=== PATIENT | female | born 1975 | race African-American/Black ===

== ENCOUNTER → 2018-11-03 | Outpatient (CLI) | payer OTHER ==
--- NOTE | 2018-11-03 09:09 | MM ---
Reason for exam: screening (asymptomatic). Baseline mammogram. History: Family history of breast cancer in mother at age 65. Physical Findings: Nurse did not find any significant physical abnormalities on exam. MG Screening Mammo w CAD Bilateral CC and MLO view(s) were taken. There are scattered fibroglandular densities. Benign appearing bilateral calcifications. No suspicious abnormality. These results were verbally communicated with the patient and result sheet given to the patient on 11/03/18. ASSESSMENT: Benign, BI-RAD 2 RECOMMENDATION: Routine screening mammogram of both breasts in 1 year.
== END | disposition home or self-care (01) ==
LOC: RADMAMWWP 06:52
DX: Z12.31 Encounter for screening mammogram for malignant neoplasm of breast (principal)
CPT/HCPCS: 77067

== ENCOUNTER 2019-01-18 14:09 | Emergency (ER) | payer OTHER ==
[2019-01-18] MEDS ORDERED: MORPHINE SULFATE 4 MG/ML SYRINGE IV STA (14:32)
[2019-01-18] MEDS ORDERED: ONDANSETRON 4 MG/2 ML VIAL IVP STA ×2 (14:32→15:30)
[2019-01-18] MEDS ORDERED: PANTOPRAZOLE 40 MG/10 ML VIAL IVP STA (14:32)
[2019-01-18] MEDS ORDERED: SODIUM CHLORIDE 0.9% 1,000 ML IV STA (14:32)
--- NOTE | 2019-01-18 14:35 | ED ---
General Adult HPI - General Source: patient, EMS, RN notes reviewed Mode of arrival: EMS Limitations: no limitations <Eduardo Lanier - Last Filed: 01/18/19 17:36> <Jethro Crawley - Last Filed: 01/18/19 19:14> - General Chief complaint: Nausea/Vomiting/Diarrhea Stated complaint: Vomiting Time Seen by Provider: 01/18/19 14:18 - History of Present Illness Initial comments: Patient is a pleasant 43-year-old female presenting to the emergency department with nausea and vomiting. Symptoms started a couple of days ago. Patient still feels nauseated. Patient also has associated diarrhea. Patient is unable to quantify the amount of vomiting or diarrhea. Patient admits also having abdominal discomfort. Patient's blood sugar was 300 per EMS. Patient limits her history providing. (Eduardo Lanier) - Related Data Home Medications Medication Instructions Recorded Confirmed Venlafaxine HCl [Effexor XR] 75 mg PO DAILY 01/18/19 01/18/19 traZODone HCL [Desyrel] 25 mg PO HS PRN 01/18/19 01/18/19 Previous Rx's Medication Instructions Recorded Dicyclomine [Bentyl] 10 mg PO TID #12 capsule 01/18/19 Ibuprofen 800 mg PO Q6HR PRN #20 tablet 01/18/19 Allergies Allergy/AdvReac Type Severity Reaction Status Date / Time morphine Allergy Unknown Verified 01/18/19 14:46 Review of Systems ROS Other: All systems not noted in ROS Statement are negative. Constitutional: Denies: fever Eyes: Denies: eye pain ENT: Denies: ear pain Respiratory: Denies: cough Cardiovascular: Denies: chest pain Endocrine: Denies: fatigue Gastrointestinal: Reports: abdominal pain, nausea, vomiting, diarrhea Genitourinary: Denies: dysuria Musculoskeletal: Denies: back pain Skin: Denies: rash Neurological: Denies: weakness <Eduardo Lanier - Last Filed: 01/18/19 17:36> ROS Other: All systems not noted in ROS Statement are negative. <Jethro Crawley - Last Filed: 01/18/19 19:14> ROS Statement: Those systems with pertinent positive or pertinent negative responses have been documented in the HPI. Past Medical History Past Medical History: Diabetes Mellitus History of Any Multi-Drug Resistant Organisms: None Reported Past Surgical History: No Surgical Hx Reported Past Psychological History: No Psychological Hx Reported Smoking Status: Current every day smoker Past Alcohol Use History: None Reported Past Drug Use History: Marijuana <Eduardo Lanier - Last Filed: 01/18/19 17:36> General Exam Limitations: no limitations General appearance: alert, in no apparent distress Head exam: Present: atraumatic Eye exam: Present: normal appearance ENT exam: Present: normal oropharynx Neck exam: Present: normal inspection Respiratory exam: Present: normal lung sounds bilaterally Cardiovascular Exam: Present: regular rate, normal rhythm GI/Abdominal exam: Present: soft, tenderness (Mild diffuse tenderness to palpation). Absent: distended Extremities exam: Present: normal inspection Neurological exam: Present: alert. Absent: motor sensory deficit Psychiatric exam: Present: flat affect Skin exam: Present: normal color <Eduardo Lanier - Last Filed: 01/18/19 17:36> Course <Eduardo Lanier - Filed: 01/18/19 17:36> Vital Signs 01/18/19 01/18/19 01/18/19 14:11 15:07 15:39 Temperature 100.1 F H 99.4 F 100.0 F H Pulse Rate 79 Respiratory 16 Rate Blood Pressure 153/92 O2 Sat by Pulse 99 Oximetry 01/18/19 01/18/19 01/18/19 17:00 17:05 18:29 Temperature 100.4 F H 100.4 F H Pulse Rate 89 Respiratory 16 16 Rate Blood Pressure 157/98 158/94 O2 Sat by Pulse 99 99 Oximetry - Reevaluation(s) Reevaluation #1: 01/18/19 17:[address] Crawley pending CT scan and reevaluation (Eduardo Lanier) EKG Findings - EKG Comments: EKG Findings:: Sinus rhythm at 60. Sinus arrhythmia. AL 198. The rest 94. QT 440. QTc 440. Normal axis. Normal QRS. No acute ST change. <Eduardo Lanier - Last Filed: 01/18/19 17:36> Medical Decision Making - Lab Data Result diagrams: 01/18/19 14:43 01/18/19 14:43 <Eduardo Lanier - Last Filed: 01/18/19 17:36> - Lab Data Result diagrams: 01/18/19 14:43 01/18/19 14:43 - Radiology Data Radiology results: report reviewed (Did review the imaging and report no acute findings), image reviewed <Jethro Crawley - Last Filed: 01/18/19 19:14> - Medical Decision Making Patient did present with complaints of nausea vomiting diarrhea some abdominal pain the presentation is consistent with gastroenteritis did have a fever. I did discuss the findings with her she'll be discharged after further fluids and some nonsteroidal pain medication she is to follow-up with her doctor and return when necessary (Jethro Crawley) - Lab Data Lab Results 01/18/19 01/18/19 01/18/19 Range/Units 14:43 14:43 14:43 WBC 12.6 H (3.8-10.6) k/uL RBC 4.76 (3.80-5.40) m/uL Hgb 12.9 (11.4-16.0) gm/dL Hct 39.7 (34.0-46.0) % MCV 83.3 (80.0-100.0) fL MCH 27.1 (25.0-35.0) pg MCHC 32.5 (31.0-37.0) g/dL RDW 15.6 H (11.5-15.5) % Plt Count 418 (150-450) k/uL Neutrophils % 84 % Lymphocytes % 13 % Monocytes % 1 % Eosinophils % 1 % Basophils % 0 % Neutrophils # 10.6 H (1.3-7.7) k/uL Lymphocytes # 1.6 (1.0-4.8) k/uL Monocytes # 0.1 (0-1.0) k/uL Eosinophils # 0.2 (0-0.7) k/uL Basophils # 0.1 (0-0.2) k/uL PT 9.7 (9.0-12.0) sec INR 0.9 (<1.2) APTT 23.7 (22.0-30.0) sec Sodium 138 (137-145) mmol/L Potassium 4.5 (3.5-5.1) mmol/L Chloride 99 (98-107) mmol/L Carbon Dioxide 21 L (22-30) mmol/L Anion Gap 18 mmol/L BUN 9 (7-17) mg/dL Creatinine 0.55 (0.52-1.04) mg/dL Est GFR (CKD-EPI)AfAm >90 (>60 ml/min/1.73 sqM) Est GFR (CKD-EPI)NonAf >90 (>60 ml/min/1.73 sqM) Glucose 316 H (74-99) mg/dL Calcium 10.7 H (8.4-10.2) mg/dL Total Bilirubin 0.6 (0.2-1.3) mg/dL AST 27 (14-36) U/L ALT <6 L (9-52) U/L Alkaline Phosphatase 222 H (38-126) U/L Total Protein 10.2 H (6.3-8.2) g/dL Albumin 4.9 (3.5-5.0) g/dL Amylase 96 (30-110) U/L Lipase 105 (23-300) U/L HCG, Qual Not Detected Urine Color Urine Appearance (Clear) Urine pH (5.0-8.0) Ur Specific [place] (1.001-1.035) Urine Protein (Negative) Urine Glucose (UA) (Negative) Urine Ketones (Negative) Urine Blood (Negative) Urine Nitrite (Negative) Urine Bilirubin (Negative) Urine Urobilinogen (<2.0) mg/dL Ur Leukocyte Esterase (Negative) Urine RBC (0-5) /hpf Urine WBC (0-5) /hpf Ur Squamous Epith Cells (0-4) /hpf Acetone, Qual Negative (Negative) 01/18/19 Range/Units 15:20 WBC (3.8-10.6) k/uL RBC (3.80-5.40) m/uL Hgb (11.4-16.0) gm/dL Hct (34.0-46.0) % MCV (80.0-100.0) fL MCH (25.0-35.0) pg MCHC (31.0-37.0) g/dL RDW (11.5-15.5) % Plt Count (150-450) k/uL Neutrophils % % Lymphocytes % % Monocytes % % Eosinophils % % Basophils % % Neutrophils # (1.3-7.7) k/uL Lymphocytes # (1.0-4.8) k/uL Monocytes # (0-1.0) k/uL Eosinophils # (0-0.7) k/uL Basophils # (0-0.2) k/uL PT (9.0-12.0) sec INR (<1.2) APTT (22.0-30.0) sec Sodium (137-145) mmol/L Potassium (3.5-5.1) mmol/L Chloride (98-107) mmol/L Carbon Dioxide (22-30) mmol/L Anion Gap mmol/L BUN (7-17) mg/dL Creatinine (0.52-1.04) mg/dL Est GFR (CKD-EPI)AfAm (>60 ml/min/1.73 sqM) Est GFR (CKD-EPI)NonAf (>60 ml/min/1.73 sqM) Glucose (74-99) mg/dL Calcium (8.4-10.2) mg/dL Total Bilirubin (0.2-1.3) mg/dL AST (14-36) U/L ALT (9-52) U/L Alkaline Phosphatase (38-126) U/L Total Protein (6.3-8.2) g/dL Albumin (3.5-5.0) g/dL Amylase (30-110) U/L Lipase (23-300) U/L HCG, Qual Urine Color Yellow Urine Appearance Clear (Clear) Urine pH 6.5 (5.0-8.0) Ur Specific [place] 1.030 (1.001-1.035) Urine Protein 2+ H (Negative) Urine Glucose (UA) 4+ H (Negative) Urine Ketones 4+ H (Negative) Urine Blood Trace H (Negative) Urine Nitrite Negative (Negative) Urine Bilirubin Negative (Negative) Urine Urobilinogen <2.0 (<2.0) mg/dL Ur Leukocyte Esterase Negative (Negative) Urine RBC 14 H (0-5) /hpf Urine WBC 1 (0-5) /hpf Ur Squamous Epith Cells <1 (0-4) /hpf Acetone, Qual (Negative) Disposition <Eduardo Lanier - Last Filed: 01/18/19 17:36> Is patient prescribed a controlled substance at d/c from ED?: No <Jethro Crawley - Last Filed: 01/18/19 19:14> Clinical Impression: Gastroenteritis, Spastic colon Disposition: HOME SELF-CARE Condition: Good Instructions (If sedation given, give patient instructions): Acute Nausea and Vomiting (ED), Acute Diarrhea (ED), Irritable Bowel Syndrome (ED) Prescriptions: Dicyclomine [Bentyl] 10 mg PO TID #12 capsule Ibuprofen 800 mg PO Q6HR PRN #20 tablet PRN Reason: Pain Referrals: Nonstaff,Physician [Primary Care Provider] - 1-2 days
[2019-01-18 14:56] LABS: Basophils # (A) 0.1 k/uL (0-0.2); Basophils % (A) 0 %; Eosinophils # (A) 0.2 k/uL (0-0.7); Eosinophils % (A) 1 %; HCT 39.7 % (34.0-46.0); HGB 12.9 gm/dL (11.4-16.0); Lymphocytes # (A) 1.6 k/uL (1.0-4.8); Lymphocytes % (A) 13 %; MCH 27.1 pg (25.0-35.0); MCHC 32.5 g/dL (31.0-37.0); MCV 83.3 fL (80.0-100.0); Mean Platelet Volume 7.9; Monocytes # (A) 0.1 k/uL (0-1.0); Monocytes % (A) 1 %; Neutrophils # (A) 10.6 k/uL (1.3-7.7); Neutrophils % (A) 84 %; Platelet Count 418 k/uL (150-450); RBC 4.76 m/uL (3.80-5.40); RDW 15.6 % (11.5-15.5); WBC 12.6 k/uL (3.8-10.6)
[2019-01-18] MEDS ORDERED: ACETAMINOPHEN TAB 500 MG TAB PO STA (14:57)
[2019-01-18 15:06] LABS: ALT <6 U/L (9-52); AST 27 U/L (14-36); African American GFR (CKD) >90 (>60 ml/min/1.73 sqM); Albumin 4.9 g/dL (3.5-5.0); Alkaline Phosphatase 222 U/L (38-126); Amylase 96 U/L (30-110); Anion Gap 18 mmol/L; Blood Urea Nitrogen 9 mg/dL (7-17); Calcium 10.7 mg/dL (8.4-10.2); Carbon Dioxide 21 mmol/L (22-30); Chloride 99 mmol/L (98-107); Glucose 316 mg/dL (74-99); Potassium 4.5 mmol/L (3.5-5.1); Sodium 138 mmol/L (137-145); Total Bilirubin 0.6 mg/dL (0.2-1.3); Total Protein 10.2 g/dL (6.3-8.2)
[2019-01-18 15:07] LABS: INR 0.9 (<1.2); Partial Thromboplastin Time 23.7 sec (22.0-30.0); Prothrombin Time 9.7 sec (9.0-12.0)
[2019-01-18 15:14] LABS: HCG,Qualitative Serum Not Detected
[2019-01-18] MEDS ORDERED: ACETAMINOPHEN SUPPOSITORY 650 MG SUPP RECTAL STA (15:31)
[2019-01-18 15:38] LABS: Appearance,Urine Clear (Clear); Bilirubin,Urine Negative (Negative); Blood,Urine Trace (Negative); Color,Urine Yellow; Glucose,Urine (UA) 4+ (Negative); Leukocyte Esterase,Urine Negative (Negative); Nitrite,Urine Negative (Negative); PH, Urine 6.5 (5.0-8.0); Protein,Urine 2+ (Negative); RBC,Urine 14 /hpf (0-5); Squamous Epithelial Cell,Urine <1 /hpf (0-4); Urobilinogen,Urine <2.0 mg/dL (<2.0); WBC,Urine 1 /hpf (0-5)
[2019-01-18 15:40] LABS: Ketones,Urine 4+ (Negative)
[2019-01-18] MEDS ORDERED: INSULIN REGULAR 100 UNIT/ML VIAL SQ ONE (15:58)
--- NOTE | 2019-01-18 17:46 | CT ---
EXAMINATION TYPE: CT abdomen pelvis w con DATE OF EXAM: 01/18/2019 HISTORY: Lethargic, nausea, vomiting and abdominal pain. CT DLP: 2136mGycm Automated Exposure Control for Dose Reduction was Utilized. CONTRAST: CT scan of the abdomen and pelvis is performed without oral but with IV Contrast, patient injected wi th 100 mL of Isovue 300. COMPARISON: None. FINDINGS: Exam is suboptimal due to patient motion artifact. LUNG BASES: No significant abnormality is appreciated. LIVER/GB: Hepatic megaly. PANCREAS: No significant abnormality is seen. SPLEEN: No significant abnormality is seen. ADRENALS: No significant abnormality is seen. KIDNEYS: Hyperdense material centrally in both kidneys likely reflects early excretion of contrast, r enal calculi felt less likely but not excluded. No hydronephrosis is present bilaterally. Subcentimet er simple appearing thin-walled cyst left kidney posteriorly for level axial image 24. Some areas of cortical scarring in right kidney BOWEL: Evaluation bowel suboptimal secondary to lack of enteric contrast. No suspicious small or larg e bowel dilatation. UTERUS/ADNEXA: Slightly anteverted uterus. Both ovaries normal in size near axial image 64. No free f luid. Single left-sided pelvic phlebolith. LYMPH NODES: No greater than 1cm abdominal or pelvic lymph nodes are appreciated. Scattered prominent but subcentimeter retroperitoneal lymph nodes most prominent left periaortic region and bilateral gr oin regions. OSSEOUS STRUCTURES: Slight grade 1 retrolisthesis L5 on S1. Moderate to severe disc space narrowing. Moderate narrowing of both hip joints. OTHER: Surgical scar suspected anterior abdominal wall near midline and left mid abdomen axial image 47. IMPRESSION: No bowel obstruction. No significant acute finding is seen to account for patient's clini erika symptoms. Hepatomegaly with prominent but subcentimeter scattered lymph nodes may warrant further nonemergent clinical workup.
--- NOTE | 2019-01-18 17:47 | XR ---
EXAMINATION TYPE: XR chest 2V DATE OF EXAM: 01/18/2019 COMPARISON: NONE HISTORY: Lethargy and fever today. TECHNIQUE: Frontal and lateral views of the chest are obtained. FINDINGS: There is no focal air space opacity, pleural effusion, or pneumothorax seen. The cardiac silhouette size is upper limits of normal. The osseous structures are intact. IMPRESSION: No suspicious acute pulmonary process.
[2019-01-18] MEDS ORDERED: DICYCLOMINE 10 MG/ML 2 ML AMP IM STA (18:57)
[2019-01-18] MEDS ORDERED: KETOROLAC 30 MG/ML 1 ML VIAL IVP STA (18:57)
[2019-01-18] MEDS ORDERED: SODIUM CHLORIDE 0.9% 500 ML 500 ML IV STA (18:57)
--- NOTE | 2019-01-18 19:17 | ED ---
Medical Decision Making - Lab Data Result diagrams: 01/18/19 14:43 01/18/19 14:43 Lab Results 01/18/19 01/18/19 01/18/19 Range/Units 14:43 14:43 14:43 WBC 12.6 H (3.8-10.6) k/uL RBC 4.76 (3.80-5.40) m/uL Hgb 12.9 (11.4-16.0) gm/dL Hct 39.7 (34.0-46.0) % MCV 83.3 (80.0-100.0) fL MCH 27.1 (25.0-35.0) pg MCHC 32.5 (31.0-37.0) g/dL RDW 15.6 H (11.5-15.5) % Plt Count 418 (150-450) k/uL Neutrophils % 84 % Lymphocytes % 13 % Monocytes % 1 % Eosinophils % 1 % Basophils % 0 % Neutrophils # 10.6 H (1.3-7.7) k/uL Lymphocytes # 1.6 (1.0-4.8) k/uL Monocytes # 0.1 (0-1.0) k/uL Eosinophils # 0.2 (0-0.7) k/uL Basophils # 0.1 (0-0.2) k/uL PT 9.7 (9.0-12.0) sec INR 0.9 (<1.2) APTT 23.7 (22.0-30.0) sec Sodium 138 (137-145) mmol/L Potassium 4.5 (3.5-5.1) mmol/L Chloride 99 (98-107) mmol/L Carbon Dioxide 21 L (22-30) mmol/L Anion Gap 18 mmol/L BUN 9 (7-17) mg/dL Creatinine 0.55 (0.52-1.04) mg/dL Est GFR (CKD-EPI)AfAm >90 (>60 ml/min/1.73 sqM) Est GFR (CKD-EPI)NonAf >90 (>60 ml/min/1.73 sqM) Glucose 316 H (74-99) mg/dL Calcium 10.7 H (8.4-10.2) mg/dL Total Bilirubin 0.6 (0.2-1.3) mg/dL AST 27 (14-36) U/L ALT <6 L (9-52) U/L Alkaline Phosphatase 222 H (38-126) U/L Total Protein 10.2 H (6.3-8.2) g/dL Albumin 4.9 (3.5-5.0) g/dL Amylase 96 (30-110) U/L Lipase 105 (23-300) U/L HCG, Qual Not Detected Urine Color Urine Appearance (Clear) Urine pH (5.0-8.0) Ur Specific [place] (1.001-1.035) Urine Protein (Negative) Urine Glucose (UA) (Negative) Urine Ketones (Negative) Urine Blood (Negative) Urine Nitrite (Negative) Urine Bilirubin (Negative) Urine Urobilinogen (<2.0) mg/dL Ur Leukocyte Esterase (Negative) Urine RBC (0-5) /hpf Urine WBC (0-5) /hpf Ur Squamous Epith Cells (0-4) /hpf Acetone, Qual Negative (Negative) 01/18/19 Range/Units 15:20 WBC (3.8-10.6) k/uL RBC (3.80-5.40) m/uL Hgb (11.4-16.0) gm/dL Hct (34.0-46.0) % MCV (80.0-100.0) fL MCH (25.0-35.0) pg MCHC (31.0-37.0) g/dL RDW (11.5-15.5) % Plt Count (150-450) k/uL Neutrophils % % Lymphocytes % % Monocytes % % Eosinophils % % Basophils % % Neutrophils # (1.3-7.7) k/uL Lymphocytes # (1.0-4.8) k/uL Monocytes # (0-1.0) k/uL Eosinophils # (0-0.7) k/uL Basophils # (0-0.2) k/uL PT (9.0-12.0) sec INR (<1.2) APTT (22.0-30.0) sec Sodium (137-145) mmol/L Potassium (3.5-5.1) mmol/L Chloride (98-107) mmol/L Carbon Dioxide (22-30) mmol/L Anion Gap mmol/L BUN (7-17) mg/dL Creatinine (0.52-1.04) mg/dL Est GFR (CKD-EPI)AfAm (>60 ml/min/1.73 sqM) Est GFR (CKD-EPI)NonAf (>60 ml/min/1.73 sqM) Glucose (74-99) mg/dL Calcium (8.4-10.2) mg/dL Total Bilirubin (0.2-1.3) mg/dL AST (14-36) U/L ALT (9-52) U/L Alkaline Phosphatase (38-126) U/L Total Protein (6.3-8.2) g/dL Albumin (3.5-5.0) g/dL Amylase (30-110) U/L Lipase (23-300) U/L HCG, Qual Urine Color Yellow Urine Appearance Clear (Clear) Urine pH 6.5 (5.0-8.0) Ur Specific [place] 1.030 (1.001-1.035) Urine Protein 2+ H (Negative) Urine Glucose (UA) 4+ H (Negative) Urine Ketones 4+ H (Negative) Urine Blood Trace H (Negative) Urine Nitrite Negative (Negative) Urine Bilirubin Negative (Negative) Urine Urobilinogen <2.0 (<2.0) mg/dL Ur Leukocyte Esterase Negative (Negative) Urine RBC 14 H (0-5) /hpf Urine WBC 1 (0-5) /hpf Ur Squamous Epith Cells <1 (0-4) /hpf Acetone, Qual (Negative) Disposition Clinical Impression: Gastroenteritis, Spastic colon, Febrile illness, acute Disposition: HOME SELF-CARE Condition: Good Instructions (If sedation given, give patient instructions): Irritable Bowel Syndrome (ED), Acute Nausea and Vomiting (ED), Acute Diarrhea (ED) Prescriptions: Dicyclomine [Bentyl] 10 mg PO TID #12 capsule Ibuprofen 800 mg PO Q6HR PRN #20 tablet PRN Reason: Pain Is patient prescribed a controlled substance at d/c from ED?: No Referrals: Nonstaff,Physician [Primary Care Provider] - 1-2 days Procedures - [place] Protocol (Time Out) Nurse: Nell Espinoza
[2019-01-18 20:44] VITALS: BP 168/86; PULSE 84; RESP 18; TEMP 99.8
== END 2019-01-18 20:50 | disposition home or self-care (01) ==
LOC: EC 14:09
DX: K52.9 Noninfective gastroenteritis and colitis, unspecified (principal); F17.200 Nicotine dependence, unspecified, uncomplicated; Z88.5 Allergy status to narcotic agent; Z79.899 Other long term (current) drug therapy
CPT/HCPCS: 99284; 96374; 96375 ×2; 96376; 96361; 96372; 36415; 80053; 82150; 82009; 83690; 85025; 85610; 85730; 81001; 84703; 87040; 71046; 74177; J0500; J2405; J1885; C9113; Q9967

== ENCOUNTER → 2019-02-22 | Outpatient (CLI) | payer OTHER ==
--- NOTE | 2019-02-22 13:26 | MR ---
EXAMINATION TYPE: MR lumbar spine wo con DATE OF EXAM: 02/22/2019 COMPARISON: CT dated 01/18/2019 HISTORY: Radiculopathy. Low back pain. TECHNIQUE: Multiplanar, multisequence images of the lumbar spine were acquired. FINDINGS: Exam is somewhat limited secondary to patient motion. Lumbar spine vertebral bodies maintai n normal vertebral body heights. There is slight retrolisthesis of L5 on S1 as noted on the prior CT of 01/18/2019. This ossification is seen at L5-S1 with disc herniation. Conus medullaris is unremarkabl e terminating at L2. Bone marrow signal is within normal limits. Evaluation of the kidneys is limited given patient motion. L1-L2: No significant disc disease, spinal canal stenosis nor neural foraminal narrowing. L2-L3: No significant disc disease, spinal canal stenosis nor neural foraminal narrowing. L3-L4: Broad-based disc bulge and minimal facet arthropathy resulting in mild bilateral neural forami nal narrowing. No spinal canal stenosis. L4-L5: There is a broad-based disc bulge and facet arthropathy resulting in mild bilateral neural for aminal narrowing. No spinal canal stenosis. L5-S1: There is a large left paracentral disc herniation extending into the left lateral recess and l eft neural foramen. This creates severe left neural foraminal narrowing and moderate spinal canal nayeli nosis. This is superimposed on a broad-based disc bulge with facet arthropathy also seen creating mod erate right neuroforaminal narrowing. IMPRESSION: 1. Large left paracentral disc herniation with extent into the left neural foramen creating severe le ft neural foraminal narrowing. This also creates moderate spinal canal stenosis and moderate right ne ural foraminal narrowing in combination with facet arthropathy and broad-based disc bulge. 2. Mild retrolisthesis of L5 on S1. 3. Mild degenerative disc disease from L3 through L5 with mild bilateral neural foraminal narrowing a t L3-L4 and L4-L5.
== END | disposition home or self-care (01) ==
LOC: RADMRIMAIN 11:15
PROVIDERS: ATTEND Family Medicine
DX: M48.061 Spinal stenosis, lumbar region without neurogenic claudication (principal); M51.16 Intervertebral disc disorders with radiculopathy, lumbar region; M43.16 Spondylolisthesis, lumbar region; M46.96 Unspecified inflammatory spondylopathy, lumbar region
CPT/HCPCS: 72148

== ENCOUNTER 2019-03-03 10:18 | Emergency (ER) | payer OTHER ==
[2019-03-03 10:27] VITALS: TEMP 98.6
[2019-03-03] MEDS ORDERED: SODIUM CHLORIDE 0.9% 1,000 ML IV STA (10:48)
[2019-03-03] MEDS ORDERED: ONDANSETRON 4 MG/2 ML VIAL IVP STA (10:48)
[2019-03-03] MEDS ORDERED: HYDROmorphone 1 MG/ML 1 ML SYRINGE IVP STA (10:48)
[2019-03-03 11:58] LABS: Basophils # (A) 0.1 k/uL (0-0.2); Basophils % (A) 1 %; Eosinophils # (A) 0.1 k/uL (0-0.7); Eosinophils % (A) 1 %; HCT 34.5 % (34.0-46.0); HGB 11.1 gm/dL (11.4-16.0); Lymphocytes % (A) 33 %; MCH 28.8 pg (25.0-35.0); MCHC 32.2 g/dL (31.0-37.0); Mean Platelet Volume 7.4; Monocytes # (A) 0.2 k/uL (0-1.0); Monocytes % (A) 2 %; Neutrophils # (A) 5.5 k/uL (1.3-7.7); Neutrophils % (A) 61 %; Platelet Count 387 k/uL (150-450); RBC 3.85 m/uL (3.80-5.40); RDW 14.6 % (11.5-15.5)
[2019-03-03 12:02] LABS: MCV 89.5 fL (80.0-100.0)
[2019-03-03 12:30] LABS: INR 0.8 (<1.2); Prothrombin Time 9.4 sec (9.0-12.0)
[2019-03-03 12:36] LABS: ALT 10 U/L (9-52); AST 48 U/L (14-36); African American GFR (CKD) >90 (>60 ml/min/1.73 sqM); Albumin 4.6 g/dL (3.5-5.0); Alcohol <10 mg/dL; Alkaline Phosphatase 145 U/L (38-126); Anion Gap 11 mmol/L; Blood Urea Nitrogen 12 mg/dL (7-17); Calcium 10.1 mg/dL (8.4-10.2); Carbon Dioxide 20 mmol/L (22-30); Chloride 107 mmol/L (98-107); Glucose 210 mg/dL (74-99); Partial Thromboplastin Time 21.8 sec (22.0-30.0); Potassium 4.4 mmol/L (3.5-5.1); Sodium 138 mmol/L (137-145); Total Bilirubin 0.3 mg/dL (0.2-1.3); Total Protein 9.5 g/dL (6.3-8.2)
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
[2019-03-03 13:41] LABS: Appearance,Urine Clear (Clear); Bacteria,Urine Occasional /hpf; Bilirubin,Urine Negative (Negative); Blood,Urine Negative (Negative); Color,Urine Light Yellow; Glucose,Urine (UA) 1+ (Negative); Hyaline Casts,Urine 5 /lpf (0-2); Ketones,Urine Trace (Negative); Leukocyte Esterase,Urine Moderate (Negative); Mucus,Urine Rare /hpf; Nitrite,Urine Negative (Negative); Protein,Urine Negative (Negative); RBC,Urine 1 /hpf (0-5); Specific Gravity,Urine 1.008 (1.001-1.035); Squamous Epithelial Cell,Urine 4 /hpf (0-4); Urobilinogen,Urine <2.0 mg/dL (<2.0); WBC,Urine 3 /hpf (0-5)
[2019-03-03 13:47] LABS: Amphetamine Screen,Urine Not Detected (NotDetected); Barbiturate Screen,Urine Not Detected (NotDetected); Benzodiazepines Screen,Urine Detected (NotDetected); Cocaine Screen,Urine Not Detected (NotDetected); Methadone Screen, Urine Not Detected (NotDetected); Opiate Screen,Urine Not Detected (NotDetected); Oxycodone Screen, Urine Not Detected (NotDetected); Phencyclidine Screen,Urine Not Detected (NotDetected); Tricyclic Antidepressant,Urine Not Detected (NotDetected); Urn Cannabinoid Scrn Detected (NotDetected)
[2019-03-03] MEDS ORDERED: HYDROmorphone 1 MG/ML 1 ML SYRINGE IM STA (13:48)
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
[2019-03-03 15:44] VITALS: BP 102/69; PULSE 84; RESP 16
[2019-03-03] MEDS ORDERED: ACET/COD 300 MG/30 MG STARTER PACK 6 TAB BTL PO STA (15:44)
== END 2019-03-03 16:11 | disposition home or self-care (01) ==
LOC: EC 10:18
DX: S16.1XXA Strain of muscle, fascia and tendon at neck level, initial encounter (principal); S39.012A Strain of muscle, fascia and tendon of lower back, initial encounter; S80.11XA Contusion of right lower leg, initial encounter; S80.12XA Contusion of left lower leg, initial encounter; S09.90XA Unspecified injury of head, initial encounter; S39.91XA Unspecified injury of abdomen, initial encounter; S29.9XXA Unspecified injury of thorax, initial encounter; E11.65 Type 2 diabetes mellitus with hyperglycemia; D64.9 Anemia, unspecified; R79.81 Abnormal blood-gas level; R82.5 Elevated urine levels of drugs, medicaments and biological substances; G89.29 Other chronic pain; M79.601 Pain in right arm; F17.200 Nicotine dependence, unspecified, uncomplicated; Z88.5 Allergy status to narcotic agent; Z79.84 Long term (current) use of oral hypoglycemic drugs; Z79.899 Other long term (current) drug therapy; V43.62XA Car passenger injured in collision with other type car in traffic accident, initial encounter; Y92.410 Unspecified street and highway as the place of occurrence of the external cause; Z53.8 Procedure and treatment not carried out for other reasons
CPT/HCPCS: 36415; 93005; 80053; 85025; 85610; 85730; 81001; 80306; 80320; 73590; 73552; 73030; 73060; 72125; 70450; 71250; 74176; 99285; 96374; 96372; J1170

== ENCOUNTER 2019-03-20 00:27 | Inpatient (IN) | payer OTHER ==
--- NOTE | 2019-03-20 02:38 | P.GSCN ---
History of Present Illness Consult date: 03/20/19 Reason for Consult: Ectopic Requesting physician: Dale Ritter History of present illness: This is a 43-year-old female 5 para 3013 who presents in transfer from [facility] to the service of Dr. Dale Ritter. Apparently she was admitted there this evening for acute pancreatitis. After she was admitted, it was discovered that she was . Beta hCG level came back at 8431. Pelvic ultrasound was performed and showed a gestational sac and the right adnexal region measuring 1.8 cm with a pole measuring 7 mm corresponding to 6 weeks 4 days. No cardiac activity was noted. The right ovary measured 7 x 4.6 x 7.4 cm. The left ovary was not visualized. In light of the findings of ectopic and the lack of ANESTHESIOLOGIST ASSISTANT care at [facility], the decision was made to transfer to [facility] for urgent treatment of her ectopic . The patient states she has been having right lower quadrant pain and diffuse abdominal pain for 1-1/2-2 weeks now. She has been extensively nausea but no vomiting. She also feels a strong pressure in her pelvic region and feels like everything is falling out. She denies any vaginal bleeding. She did have a tubal ligation at the time of her last section in 2013. Obstetrical history: 013. History of 3 deliveries. History of 1 miscarriage. Gynecologic history: History of chlamydia and Trichomonas treated many years ago. She did have a normal Pap smear within the last couple years. Social history: She is single. Review of Systems - Constitutional Denies fever, Denies weight loss - EENT Ears, nose, mouth and throat: Denies dysphagia - Cardiovascular Denies chest pain, Denies shortness of breath - Respiratory Denies cough, Denies 7 - Gastrointestinal Reports abdominal pain, Reports nausea, Denies vomiting - Genitourinary Genitourinary: Reports pelvic pain, Reports , Denies abnormal vaginal bleeding - Musculoskeletal Reports low back pain - Neurological Reports numbness, Reports paresthesias - Psychiatric Reports anxiety - Endocrine Reports high blood sugars Past Medical History Past Medical History: Diabetes Mellitus, Musculoskeletal Disorder Additional Past Medical History / Comment(s): neuropathy, bulging discs, sciatic nerve pain, anxiety, depression History of Any Multi-Drug Resistant Organisms: None Reported Past Surgical History: Section, Tubal Ligation Additional Past Surgical History / Comment(s): C section x3 Past Psychological History: Anxiety, Depression Additional Psychological History / Comment(s): pt states she has anxiety and depression, and smokes pot for stress relief daily. Smoking Status: Current every day smoker Past Alcohol Use History: None Reported Past Drug Use History: Marijuana Additional Drug Use History / Comment(s): daily for stress relief - Past Family History Mother Family Medical History: Cancer, Diabetes Mellitus, Hypertension Father Family Medical History: Coronary Artery Disease (CAD), CVA/TIA, Hypertension Medications and Allergies Home Medications Medication Instructions Recorded Confirmed Type traZODone HCL [Desyrel] 25 mg PO HS PRN 01/18/19 03/03/19 History Baclofen [Lioresal] 10 mg PO HS 03/03/19 03/03/19 History Ergocalciferol [Vitamin D2] 50,000 unit PO Q7D 03/03/19 03/03/19 History Gabapentin 800 mg PO TID 03/03/19 03/03/19 History HYDROcodone/APAP 10-325MG [[place] 1 tab PO TID PRN 03/03/19 03/03/19 History 10-325] glipiZIDE [Glucotrol] 5 mg PO HS 03/03/19 03/03/19 History metFORMIN HCL 1,000 mg PO BID 03/03/19 03/03/19 History Allergies Allergy/AdvReac Type Severity Reaction Status Date / Time morphine Allergy Unknown Verified 03/03/19 12:24 Surgical - Exam Osteopathic Statement: *. No significant issues noted on an osteopathic str uctural exam other than those noted in the History and Physical/Consult. Vital Signs Temp Pulse Resp BP Pulse Ox 97.4 F L 61 18 102/63 95 03/20/19 01:19 03/20/19 01:19 03/20/19 01:19 03/20/19 01:19 03/20/19 01:19 - General well developed, well nourished, moderate distress - Neck no masses - Cardiovascular Rhythm: regular - Abdomen Abdomen: tender, guarding (Some guarding), no rigid, no rebound - Genitourinary Deferred to the OR - Psychiatric oriented to time, oriented to person, oriented to place, speech is normal Assessment and Plan (1) Ectopic Current Visit: Yes Status: Acute Code(s): O00.90 - UNSPECIFIED ECTOPIC WITHOUT INTRAUTERINE SNOMED Code(s): 14489196 Plan: Will obtain consent for exploratory laparotomy, right salpingectomy, possible right oophorectomy. The procedure was explained in detail to the patient including risks and benefits. We will obtain type and screen and CBC. Possible need for blood transfusion was also discussed with the patient. Anesthesia is notified.
[2019-03-20] MEDS ORDERED: HYDROmorphone 0.5 MG/0.5 ML SYRINGE IVP PRN (04:12)
[2019-03-20 05:48] LABS: HCT 24.8 % (34.0-46.0); MCH 29.4 pg (25.0-35.0); Mean Platelet Volume 7.2; Platelet Count 319 k/uL (150-450); RBC 2.78 m/uL (3.80-5.40); RDW 13.9 % (11.5-15.5); WBC 6.9 k/uL (3.8-10.6)
[2019-03-20 05:55] LABS: HGB 8.2 gm/dL (11.4-16.0)
[2019-03-20] MEDS ORDERED: METOCLOPRAMIDE 5 MG/ML 2 ML VIAL IVP PRN (06:50)
[2019-03-20] MEDS ORDERED: LIDOCAINE 1% 20 ML VIAL (10MG/ML) FOR IV START INTRADERMA PRN (06:50)
[2019-03-20] MEDS ORDERED: ONDANSETRON 4 MG/2 ML VIAL IVP ONE (06:50)
[2019-03-20] MEDS ORDERED: DEXAMETHASONE SOD PHOSPHATE 10 MG/ML 1 ML VIAL IV ONE (06:50)
[2019-03-20 06:55] LABS: Glucose,Whole Blood 159 mg/dL (75-99)
[2019-03-20] MEDS ORDERED: GLYCOPYRROLATE 0.2 MG/ML 2 ML VIAL ONE (06:57)
[2019-03-20] MEDS ORDERED: NEOSTIGMINE 1 MG/ML 10 ML VIAL ONE (06:57)
[2019-03-20] MEDS ORDERED: fentaNYL (PF) 50 MCG/ML 2 ML AMP ONE (06:57)
[2019-03-20] MEDS ORDERED: MIDAZOLAM 2 MG/2 ML VIAL ONE (06:57)
[2019-03-20] MEDS ORDERED: ROCURONIUM BROMIDE 10 MG/ML 10 ML VIAL IV ONE (06:57)
[2019-03-20] MEDS ORDERED: IV FLUID CONTINUATION 1,000 ML IV ONE (06:57)
[2019-03-20] MEDS ORDERED: PROPOFOL 10 MG/ML 20 ML VIAL IV ONE (06:57)
[2019-03-20] MEDS ORDERED: LACTATED RINGERS 1,000 ML IV SCH (07:00)
[2019-03-20] MEDS ORDERED: SODIUM CHLORIDE 0.9% 100 ML with ceFAZolin 2,000 MG IV ONE ×2 (07:21)
[2019-03-20] MEDS ORDERED: LACTATED RINGERS 1,000 ML IV ONE (07:43)
--- NOTE | 2019-03-20 07:55 | P.OP ---
Date of Procedure: 03/20/19 Preoperative Diagnosis: Right ectopic Postoperative Diagnosis: Ruptured right ectopic Procedure(s) Performed: Exploratory laparotomy, right salpingectomy Anesthesia: ROBBIE Surgeon: Kay Salgado Manager Family #1: Jamaal Mccoy Estimated Blood Loss (ml): 300 (Additional approximately 100 mL of hemoperitoneum within the pelvis) Pathology: other (Right fallopian tube with ectopic ) Condition: stable Disposition: floor Indications for Procedure: This is a 43-year-old female 5 para 3 who presented with abdominal pain and was discovered to be . Ultrasound was performed and right ectopic was found on ultrasound measuring approximately 6 weeks size. No heart tones were noted. Operative Findings: Right fallopian tube was dilated with ectopic . Approximately 100 mL of hemoperitoneum was noted. Normal ovaries bilaterally. Right ovary did have a small corpus luteum cyst. Left tube appeared within normal limits with evidence of previous tubal ligation. Description of Procedure: The patient was taken to the operating room where she is placed in the dorsal supine position. She is prepped and draped in the normal sterile fashion i ncluding a Wills catheter insertion. A Pfannenstiel skin incision was made with a scalpel through the previous laparotomy scar. A second knife was used to carry the incision down to the underlying layer of fascia. The fascia was nicked in the midline and extended bilaterally with Hanson scissors. Next the anterior lip of the fascia was grasped with 2 Irwin clamps. The fascia was dissected off the rectus muscle in the midline with Hanson scissors. The inferior aspect of the fascial incision was grasped with Irwin clamps and dissected off the underlying rectus muscle in the midline with Hanson scissors. Next the peritoneum was identified and tented up with 2 hemostats and then entered bluntly with a hemostat. The peritoneal incision was extended superiorly in fairly with Metzenbaum scissors with good visualization of underlying structures. Hemoperitoneum was noted and suctioned out. The right fallopian tube was visualized. It did appear to have an ectopic within it. A B alfour retractor was placed and the bladder blade was inserted. The right fallopian tube was grasped along then entire mesosalpinx with a Samy clamp. The tube was then removed with Metzenbaum scissors. The pedicle was then sutured with 0 Vicryl suture in a Samy transfixion stitch, flashed, and then free tied with a free tie of 0 Vicryl suture. Good hemostasis was noted. Copious irrigation was carried out with warm saline. Excellent hemostasis is noted. All sponges are removed from the abdomen. The peritoneal layer is then closed with 0 Vicryl suture in a running fashion. Muscle layer is reapproximated with 0 Vicryl suture in interrupted fashion. The fascial layer is then closed with 0 PDS suture with 2 sutures meeting in the midline and the knots buried on either side and in the midline. Next the subcutaneous tissue was closed with 2-0 Vicryl suture in a running fashion. Skin is closed with lolita. All sponge and needle counts are correct.
[2019-03-20] MEDS: HYDROmorphone 0.5 MG/0.5 ML SYRINGE IVP PRN ×4 (08:11→08:37)
[2019-03-20] MEDS: KETOROLAC 30 MG/ML 1 ML VIAL IVP SCH ×4 (08:11→22:51)
[2019-03-20] MEDS ORDERED: diphenhydrAMINE 50 MG/ML 1 ML VIAL IVP PRN (09:34)
[2019-03-20] MEDS ORDERED: HYDROmorphone PCA 10 MG/50 ML BAG IV PRN (09:34)
[2019-03-20] MEDS ORDERED: SIMETHICONE 80 MG CHEWABLE PO PRN (09:34)
[2019-03-20] MEDS ORDERED: NALOXONE 0.4 MG/ML 1 ML VIAL IV PRN (09:34)
[2019-03-20 11:49] LABS: Glucose,Whole Blood 189 mg/dL (75-99)
[2019-03-20] MEDS: SENNOSIDES-DOCUSATE SODIUM 1 EACH TAB PO SCH ×2 (12:55→20:42)
[2019-03-20] MEDS: LACTATED RINGERS 1,000 ML IV SCH ×2 (12:56→16:01)
[2019-03-20] MEDS: GABAPENTIN 400 MG CAP PO SCH ×2 (16:01→20:43)
[2019-03-20 16:38] LABS: Glucose,Whole Blood 183 mg/dL (75-99)
[2019-03-20] MEDS: INSULIN ASPART (NovoLOG) 100 UNIT/ML VIAL SQ SCH ×2 (17:03→20:42)
[2019-03-20] MEDS: metFORMIN 500 MG TAB PO SCH (17:03)
[2019-03-20 20:22] LABS: Glucose,Whole Blood 196 mg/dL (75-99)
[2019-03-20] MEDS: IBUPROFEN 600 MG TAB PO PRN (20:41)
[2019-03-20] MEDS: BACLOFEN 10 MG TAB PO SCH (20:42)
[2019-03-21] MEDS: LACTATED RINGERS 1,000 ML IV SCH ×3 (05:57→18:43)
[2019-03-21 07:00] LABS: Glucose,Whole Blood 188 mg/dL (75-99)
[2019-03-21 07:06] LABS: Basophils # (A) 0.1 k/uL (0-0.2); Basophils % (A) 1 %; Eosinophils # (A) 0.3 k/uL (0-0.7); Eosinophils % (A) 3 %; HCT 25.3 % (34.0-46.0); HGB 8.4 gm/dL (11.4-16.0); Lymphocytes # (A) 2.5 k/uL (1.0-4.8); Lymphocytes % (A) 27 %; MCH 28.9 pg (25.0-35.0); MCHC 33.2 g/dL (31.0-37.0); Mean Platelet Volume 9.4; Monocytes # (A) 0.4 k/uL (0-1.0); Monocytes % (A) 4 %; Neutrophils # (A) 5.8 k/uL (1.3-7.7); Neutrophils % (A) 64 %; Platelet Count 318 k/uL (150-450); WBC 9.1 k/uL (3.8-10.6)
[2019-03-21] MEDS: metFORMIN 500 MG TAB PO SCH ×2 (07:43→17:01)
[2019-03-21] MEDS: INSULIN ASPART (NovoLOG) 100 UNIT/ML VIAL SQ SCH ×4 (07:43→21:18)
[2019-03-21] MEDS ORDERED: ACETAMINOPHEN TAB 325 MG TAB PO PRN (07:58)
[2019-03-21] MEDS ORDERED: HYDROcodone/APAP 5-325MG 1 EACH TAB PO PRN (08:26)
--- NOTE | 2019-03-21 08:26 | P.PN ---
Subjective Progress Note Date: 03/21/19 Principal diagnosis: Status post exploratory laparotomy with right salpingectomy due to ruptured ectopic postoperative day #1 Patient is sore this morning. She is not ambulated yet. She is not passing flatus or bowel movement yet. She is using her HUMAN RESOURCES MANAGER pump with some relief. Objective - Vital Signs Vital signs: Vital Signs Temp 98.3 F 03/21/19 07:03 Pulse 68 03/21/19 07:03 Resp 16 03/21/19 07:03 BP 104/70 03/21/19 07:03 Pulse Ox 98 03/21/19 07:03 Intake & Output 03/20/19 03/21/19 03/21/19 18:59 06:59 18:59 Intake Total 300 240 Output Total 1950 950 Balance -1650 -710 Intake: IV 300 Oral 240 Output: Urine 1650 950 Estimated Blood Loss 300 Other: Voiding Method Indwelling Catheter Indwelling Catheter - Constitutional General appearance: Present: no acute distress - Gastrointestinal Gastrointestinal Comment(s): Incision is clean dry and intact with lolita in place General gastrointestinal: Present: decreased bowel sounds (Positive bowel sounds but decreased.) - Labs CBC & Chem 7: 03/21/19 06:37 Labs: Abnormal Lab Results - Last 24 Hours (Table) 03/20/19 03/20/19 03/20/19 Range/Units 11:45 16:35 20:21 RBC (3.80-5.40) m/uL Hgb (11.4-16.0) gm/dL Hct (34.0-46.0) % POC Glucose (mg/dL) 189 H 183 H 196 H (75-99) mg/dL 03/21/19 03/21/19 Range/Units 06:37 06:56 RBC 2.90 L (3.80-5.40) m/uL Hgb 8.4 L (11.4-16.0) gm/dL Hct 25.3 L (34.0-46.0) % POC Glucose (mg/dL) 188 H (75-99) mg/dL Assessment and Plan Assessment: Status post exploratory laparotomy with right salpingectomy due to ruptured ectopic postoperative day #1 (1) Ectopic Current Visit: Yes Status: Acute Code(s): O00.90 - UNSPECIFIED ECTOPIC PREGN [place] WITHOUT INTRAUTERINE SNOMED Code(s): 38479562 Plan: Will remove Wills catheter this morning. Will advance diet when she is passing flatus. Will switch from HUMAN RESOURCES MANAGER to oral pain medications today. Patient encouraged to ambulate.
[2019-03-21] MEDS: GABAPENTIN 400 MG CAP PO SCH ×3 (09:32→21:17)
[2019-03-21] MEDS: SENNOSIDES-DOCUSATE SODIUM 1 EACH TAB PO SCH ×2 (09:32→21:17)
[2019-03-21] MEDS: HYDROcodone/APAP 7.5-325MG 1 EACH TAB PO PRN ×2 (10:45→16:10)
[2019-03-21 11:31] LABS: Glucose,Whole Blood 97 mg/dL (75-99)
--- NOTE | 2019-03-21 12:23 | HP ---
HISTORY AND PHYSICAL 43-year-old, 5, para 3, transferred to the hospital for pancreatitis. We found a beta HCG of 8431 and a positive pelvic ultrasound for gestational sac in the right adnexal region with pole and 1.8 cm. She is admitted for possible surgery and gynecology consult, transferred here from [facility] with diffuse abdominal pain. She never had pain like this before. She has a history of chlamydia and Trichomonas treated many years ago and 1 miscarriage. Normal Pap smear in the last couple years. SOCIAL HISTORY: She is single REVIEW OF SYMPTOMS: 14-point review of systems negative except for mentioned in HPI and history of chronic back pain, paresthesias for which she sees a pain doctor. PAST MEDICAL HISTORY: Diabetes mellitus and neuropathy, bulging discs, sciatic nerve pain, anxiety, depression. PAST SURGICAL HISTORY: She has had , tubal ligation, which was 3 years ago. She has anxiety and depression. Smokes pot daily. FAMILY HISTORY: Mother with diabetes mellitus, hypertension, cancer. Father coronary disease, hypertension, CVA and TIA. HOME MEDICATIONS: Desyrel 25 at night, Lioresal 10 mg daily, gabapentin 800 t.i.d., Mastic 10/325 t.i.d., Glucotrol 5 daily, metformin 1000 b.i.d. ALLERGIES: MORPHINE. PHYSICAL EXAMINATION: Temp 97.4, pulse 60, respiratory 18-20, blood pressure 102/63, O2 saturation 95%. Well developed, well nourished, no acute distress. Cardiovascular S1-S2. Psych: She appears anxious and flat affect. Abdomen is distended, tender to palpation. Diffuse, more pain and guarding, especially in the epigastric area in the mid abdomen area and lower quadrants, but is more diffuse. : No suprapubic tenderness. Psych fair mood and affect. ASSESSMENT: 1. Ectopic . 2. Pancreatitis. 3. Anxiety, depression.. 4. Neuropathy. 5. Diabetes mellitus. She will need surgery for gynecology for ectopic . We will do Accu-Cheks. Hold oral diabetic medications, but she is eating better. Other home medicines for pain and neuropathy can be continued. MMODL / IJN: [id number] /
[2019-03-21] MEDS: KETOROLAC 30 MG/ML 1 ML VIAL IVP PRN ×2 (12:28→18:49)
[2019-03-21 16:44] LABS: Glucose,Whole Blood 144 mg/dL (75-99)
[2019-03-21] MEDS: HYDROcodone/APAP 10-325MG 1 EACH TAB PO PRN (19:58)
[2019-03-21 21:04] LABS: Glucose,Whole Blood 159 mg/dL (75-99)
[2019-03-21] MEDS: traZODone HCL 50 MG TAB PO PRN (21:17)
[2019-03-21] MEDS: BACLOFEN 10 MG TAB PO SCH (21:18)
[2019-03-22] MEDS: HYDROcodone/APAP 10-325MG 1 EACH TAB PO PRN ×4 (01:51→23:48)
[2019-03-22 06:56] LABS: Glucose,Whole Blood 198 mg/dL (75-99)
[2019-03-22] MEDS: GABAPENTIN 400 MG CAP PO SCH ×3 (06:59→20:03)
[2019-03-22] MEDS: metFORMIN 500 MG TAB PO SCH ×2 (06:59→16:50)
[2019-03-22] MEDS: SENNOSIDES-DOCUSATE SODIUM 1 EACH TAB PO SCH ×2 (06:59→20:03)
[2019-03-22] MEDS: INSULIN ASPART (NovoLOG) 100 UNIT/ML VIAL SQ SCH ×4 (06:59→20:03)
--- NOTE | 2019-03-22 07:38 | PN ---
PROGRESS NOTE SUBJECTIVE: This is an female, status post ectopic surgery. She has got incisional pain. Her diet is going to be increased. She is going to get ambulating around the room. She has been taken off her CARPET INSPECTOR pump and on oral pain medicines. CARDIOVASCULAR: S1, S2. LUNGS: Clear. GI: Diffuse tenderness incision right lower quadrant. ASSESSMENT: 1. Status post ectopic . 2. Pancreatitis. 3. Degenerative disk disease. 4. Neuropathy. 5. Diabetes mellitus. Continue current treatments. Change pain medicine to oral. Increase ambulation. Increase oral intake. Possible discharge home in the next 48 hours. MMODL / IJN: [id number] /
--- NOTE | 2019-03-22 08:21 | P.PN ---
Subjective Progress Note Date: 03/22/19 Principal diagnosis: Status post exploratory laparotomy with right salpingectomy due to ruptured ectopic postoperative day #2 Patient did have some issues with pain control yesterday. She was increased to [place] 10/325 every 6 hours as needed, in addition to Toradol. She is doing a little bit better this morning. She is passing flatus but no bowel movement yet. She has ambulated. She is urinating without difficulty. Objective - Vital Signs Vital signs: Vital Signs Temp 98.3 F 03/22/19 06:55 Pulse 71 03/22/19 06:55 Resp 16 03/22/19 06:55 BP 108/72 03/22/19 06:55 Pulse Ox 95 03/22/19 06:55 Intake & Output 03/21/19 03/22/19 03/22/19 18:59 06:59 18:59 Intake Total 100 Output Total 650 800 Balance -650 -700 Intake: Oral 100 Output: Urine 650 800 Other: Voiding Method Toilet Toilet # Voids 1 - Constitutional General appearance: Present: no acute distress - Gastrointestinal Gastrointestinal Comment(s): Incision is clean dry and intact with lolita in place General gastrointestinal: Present: normal bowel sounds - Labs CBC & Chem 7: 03/21/19 06:37 Labs: Abnormal Lab Results - Last 24 Hours (Table) 03/21/19 03/21/19 03/22/19 Range/Units 16:43 21:03 06:54 POC Glucose (mg/dL) 144 H 159 H 198 H (75-99) mg/dL Assessment and Plan Assessment: Status post exploratory laparotomy with right salpingectomy due to ruptured ectopic postoperative day #2 (1) Ectopic Current Visit: Yes Status: Acute Code(s): O00.90 - UNSPECIFIED ECTOPIC WITHOUT INTRAUTERINE SNOMED Code(s): 02368261 Plan: We'll discontinue IV and IV pain medication. She will alternate between Marion and Motrin. She is encouraged to continue ambulating. Patient is concerned that she has to go up a flight of steps to get to her apartment but what she is in her apartment it is one level. Will consult case management for possible assistance when she goes home. Anticipate possible discharge tomorrow.
[2019-03-22] MEDS: IBUPROFEN 600 MG TAB PO PRN ×2 (11:20→16:50)
[2019-03-22 11:30] LABS: Glucose,Whole Blood 114 mg/dL (75-99)
--- NOTE | 2019-03-22 14:15 | P.PN ---
Subjective Progress Note Date: 03/22/19 This is a 43-year-old female admitted with ectopic status post exploratory laparotomy with right salpingectomy. 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 Good diet intake, no nausea or vomiting. Blood sugars controlled. Reports passing flatus with no bowel moveme nt. Afebrile. Objective - Vital Signs Vital signs: Vital Signs Temp 98.3 F 03/22/19 06:55 Pulse 71 03/22/19 06:55 Resp 16 03/22/19 06:55 BP 108/72 03/22/19 06:55 Pulse Ox 95 03/22/19 06:55 Intake & Output 03/21/19 03/22/19 03/22/19 18:59 06:59 18:59 Intake Total 100 Output Total 650 800 Balance -650 -700 Intake: Oral 100 Output: Urine 650 800 Other: Voiding Method Toilet Toilet # Voids 1 - Exam PHYSICAL EXAM: VITAL SIGNS: As above GENERAL: Sitting up in chair, no acute distress HEENT: Conjunctivae normal. eyes normal. Oral mucosa moist NECK: No JVD. No thyroid enlargement. No LNs CARDIOVASCULAR: S1, S2 regular.. No murmur RESPIRATION: Breath sounds diminished in the bases. No rhonchi or crackles. No bronchial breathing. ABDOMEN: Soft, nontender . No guarding. no masses palpable. ABD pad/Dressing clean dry and intact.Bowel sounds heard. LEGS: No edema. no swelling PSYCHIATRY: Alert and oriented X3, mood and affect normal. NERVOUS SYSTEM: Cranial N 2-12 grossly normal. Moves all 4 limbs. Diffuse weakness No focal deficits. Strength and sensation grossly intact.. - Labs CBC & Chem 7: 03/21/19 06:37 Labs: Abnormal Lab Results - Last 24 Hours (Table) 03/21/19 03/21/19 03/22/19 Range/Units 16:43 21:03 06:54 POC Glucose (mg/dL) 144 H 159 H 198 H (75-99) mg/dL 03/22/19 Range/Units 11:27 POC Glucose (mg/dL) 114 H (75-99) mg/dL Assessment and Plan Assessment: Status post ruptured ectopic , status post exploratory laparotomy with right salpingectomy, Diabetes mellitus Anxiety depression Ongoing nicotine dependence Marijuana daily use Neuropathy Plan: Continue on current medication regime ,monitoring and systemic treatment.Pain management as per CHEESE SPRAYER surgery. Aggressive pulmonary toileting with incentive spirometer reinforced. PT evaluation pending.Increase ambulation as tolerated. Discharge planning in progress for tomorrow pending surgeries clearance. Case management assistance with discharge planning, home care. The impression and plan of care has been dictated as directed. : I performed a history and examination of this patient, discussed the same with the dictator. I agree with the dictator's note ,documented as a scribe. Any additional findings or plans will be noted.
[2019-03-22 16:42] LABS: Glucose,Whole Blood 159 mg/dL (75-99)
[2019-03-22 20:00] LABS: Glucose,Whole Blood 122 mg/dL (75-99)
[2019-03-22] MEDS: traZODone HCL 50 MG TAB PO PRN (20:03)
[2019-03-22] MEDS: BACLOFEN 10 MG TAB PO SCH (20:03)
[2019-03-23] MEDS: HYDROcodone/APAP 10-325MG 1 EACH TAB PO PRN ×4 (06:07→20:20)
[2019-03-23 07:00] LABS: Glucose,Whole Blood 178 mg/dL (75-99)
[2019-03-23 07:01] LABS: African American GFR (CKD) >90 (>60 ml/min/1.73 sqM); Anion Gap 6 mmol/L; Blood Urea Nitrogen 3 mg/dL (7-17); Carbon Dioxide 27 mmol/L (22-30); Chloride 107 mmol/L (98-107); Glucose 149 mg/dL (74-99); Potassium 4.2 mmol/L (3.5-5.1); Sodium 140 mmol/L (137-145)
[2019-03-23 07:03] LABS: Basophils % (A) 0 %; Eosinophils # (A) 0.2 k/uL (0-0.7); Eosinophils % (A) 2 %; HCT 23.9 % (34.0-46.0); HGB 7.7 gm/dL (11.4-16.0); Lymphocytes # (A) 2.2 k/uL (1.0-4.8); Lymphocytes % (A) 29 %; MCH 28.7 pg (25.0-35.0); MCHC 32.3 g/dL (31.0-37.0); MCV 88.9 fL (80.0-100.0); Mean Platelet Volume 7.2; Monocytes # (A) 0.3 k/uL (0-1.0); Monocytes % (A) 3 %; Neutrophils # (A) 4.7 k/uL (1.3-7.7); Neutrophils % (A) 63 %; Platelet Count 337 k/uL (150-450); RBC 2.69 m/uL (3.80-5.40); RDW 13.3 % (11.5-15.5); WBC 7.5 k/uL (3.8-10.6)
[2019-03-23] MEDS: INSULIN ASPART (NovoLOG) 100 UNIT/ML VIAL SQ SCH ×4 (07:10→20:40)
[2019-03-23] MEDS: metFORMIN 500 MG TAB PO SCH ×2 (07:10→17:20)
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
[2019-03-23] MEDS: SENNOSIDES-DOCUSATE SODIUM 1 EACH TAB PO SCH ×2 (09:28→20:20)
[2019-03-23] MEDS: GABAPENTIN 400 MG CAP PO SCH ×3 (09:29→20:20)
--- NOTE | 2019-03-23 09:45 | CDI ---
Documentation Clarification Form Date: 03/23/2019 9:22:42 AM From: Katherine Miranda RN, CCDS Admit Date: 03/20/2019 1:05:00 AM Patient Name: Azra Her Visit Number: [id number] Discharge Date: ATTENTION: The Clinical Documentation Specialists (CDI) and [facility] Coding Staff appreciate your assistance in clarifying documentation. Please respond to the clarification below the line at the bottom and electronically sign. The CDI & [facility] Coding staff will review the response and follow-up if needed. Please note: Queries are made part of the Legal Health Record. If you have any questions, please contact the author of this message via ITS. Dr. Dale Ritter Documentation states: Ruptured ectopic History/Risk Factors: Pancreatitis, Diabetes Mellitus Clinical indicators: 43-year-old female found a beta HCG of 8431 and positive pelvic ultrasound for gestational sac in the right adnexal region with pole and 1.8 cm. She was complaining of diffuse abdominal pain. 03/20/19 She had an Exploratory laparotomy, right salpingectomy with estimated blood loss 300 mLs and additional approximately 100 mL of hemoperitoneum within the pelvis was removed. 03/23/19 Dr. Salgado progress note: She is having some vaginal bleeding now but is somewhat heavy. Labs: 03/20/19:HGB 8.2, HCT 24.8 03/21/19: HGB 8.4, HCT 25.3 03/23/19: HGB 7.7, HCT 3.9 Treatment: Monitor CBC Exploratory laparotomy, right salpingectomy Clinical significance of diagnostic testing and treatment CANNOT be assumed or coded without physician documentation of significance if any. Please clarify what abnormal laboratory signifies: Disease process, please specify Abnormal Lab Value Unable to determine Other, please specify (Last Revision: February 2017) MTDD
[2019-03-23 11:48] LABS: Glucose,Whole Blood 139 mg/dL (75-99)
[2019-03-23 16:49] LABS: Glucose,Whole Blood 142 mg/dL (75-99)
[2019-03-23] MEDS: IBUPROFEN 600 MG TAB PO PRN (17:22)
--- NOTE | 2019-03-23 17:29 | P.PN ---
Subjective Progress Note Date: 03/23/19 This is a 43-year-old female admitted with ectopic status post exploratory laparotomy with right salpingectomy. Reports significant pain;pain management adjusted as per ANALYTICS DEVELOPER surgery. Good diet intake, no nausea or vomiting. Blood sugars controlled. Reports passing flatus with no bowel moveme nt. Afebrile. 03/23/2019 hemoglobin 7.7, symptomatic. Complains of increased generalized weakness, lightheadedness without focal deficits. Denies shortness of breath. Denies chest pain or palpitations. Pain improving. Tolerating exertion, ambulating with walker. Evaluated by physical therapy, subacute rehab is not recommended at this time .Staff reports vaginal bleeding has slowed down, one pad changed as of this morning. Objective - Vital Signs Vital signs: Vital Signs Temp 98.1 F 03/23/19 07:00 Pulse 65 03/23/19 07:00 Resp 16 03/23/19 07:52 BP 111/75 03/23/19 07:00 Pulse Ox 96 03/23/19 07:00 Intake & Output 03/22/19 03/23/19 03/23/19 18:59 06:59 18:59 Intake Total 480 243 Balance 480 243 Intake: Oral 480 243 Other: Voiding Method Toilet Toilet # Voids 3 - Exam PHYSICAL EXAM: VITAL SIGNS: As above GENERAL: Sitting up in chair, no acute distress HEENT: Conjunctivae normal. eyes normal. Oral mucosa moist NECK: No JVD. No thyroid enlargement. No LNs CARDIOVASCULAR: S1, S2 regular.. No murmur RESPIRATION: Breath sounds diminished in the bases. No rhonchi or crackles. No bronchial breathing. ABDOMEN: Soft, nontender . No guarding. no masses palpable. ABD pad/Dressing clean dry and intact, lolita intact, well approximated.Bowel sounds heard. LEGS: No edema. no swelling PSYCHIATRY: Alert and oriented X3, mood and affect normal. NERVOUS SYSTEM: Cranial N 2-12 grossly normal. Moves all 4 limbs. Diffuse weakness No focal deficits. Strength and sensation grossly intact.. - Labs CBC & Chem 7: 03/23/19 06:09 03/23/19 06:09 Labs: Abnormal Lab Results - Last 24 Hours (Table) 03/22/19 03/22/19 03/22/19 Range/Units 11:27 16:41 19:59 RBC (3.80-5.40) m/uL Hgb (11.4-16.0) gm/dL Hct (34.0-46.0) % BUN (7-17) mg/dL Glucose (74-99) mg/dL POC Glucose (mg/dL) 114 H 159 H 122 H (75-99) mg/dL 03/23/19 03/23/19 03/23/19 Range/Units 06:09 06:09 06:59 RBC 2.69 L (3.80-5.40) m/uL Hgb 7.7 L (11.4-16.0) gm/dL Hct 23.9 L (34.0-46.0) % BUN 3 L (7-17) mg/dL Glucose 149 H (74-99) mg/dL POC Glucose (mg/dL) 178 H (75-99) mg/dL Assessment and Plan Assessment: Status post ruptured ectopic , status post exploratory laparotomy with right salpingectomy, Acute Blood Loss Anemia, expected related to ruptured ectopic Diabetes mellitus Anxiety depression Ongoing nicotine dependence Marijuana daily use Neuropathy Plan: Continue on current medication regime ,monitoring and systemic treatment.transfuse 1 unit of packed RBCs. Close monitoring of CBC, electrolytes with repeat labs ordered for a.m. Pain management as per ROADS SUPERINTENDENT surgery. Continue with Aggressive pulmonary toileting -incentive spirometer reinforced. Increase ambulation as tolerated. Discharge planning in progress for tomorrow. The impression and plan of care has been dictated as directed. : I performed a history and examination of this patient, discussed the same with the dictator. I agree with the dictator's note ,documented as a scribe. Any additional findings or plans will be noted.
[2019-03-23] MEDS: PANTOPRAZOLE 40 MG/10 ML VIAL IVP SCH (18:30)
[2019-03-23] MEDS: BACLOFEN 10 MG TAB PO SCH (20:20)
[2019-03-23 20:21] LABS: Glucose,Whole Blood 161 mg/dL (75-99)
[2019-03-24] MEDS: HYDROcodone/APAP 10-325MG 1 EACH TAB PO PRN ×3 (03:52→20:00)
[2019-03-24 07:07] LABS: Glucose,Whole Blood 176 mg/dL (75-99)
[2019-03-24 07:19] LABS: Basophils # (A) 0.1 k/uL (0-0.2); Basophils % (A) 1 %; Eosinophils # (A) 0.2 k/uL (0-0.7); Eosinophils % (A) 3 %; HCT 27.7 % (34.0-46.0); Lymphocytes # (A) 2.7 k/uL (1.0-4.8); Lymphocytes % (A) 37 %; MCH 28.5 pg (25.0-35.0); MCHC 32.4 g/dL (31.0-37.0); MCV 88.2 fL (80.0-100.0); Mean Platelet Volume 8.3; Monocytes # (A) 0.3 k/uL (0-1.0); Monocytes % (A) 4 %; Neutrophils # (A) 3.8 k/uL (1.3-7.7); Neutrophils % (A) 53 %; Platelet Count 371 k/uL (150-450); RBC 3.14 m/uL (3.80-5.40); RDW 13.6 % (11.5-15.5); WBC 7.2 k/uL (3.8-10.6)
[2019-03-24 07:34] LABS: African American GFR (CKD) >90 (>60 ml/min/1.73 sqM); Anion Gap 8 mmol/L; Blood Urea Nitrogen 4 mg/dL (7-17); Calcium 9.1 mg/dL (8.4-10.2); Carbon Dioxide 24 mmol/L (22-30); Chloride 106 mmol/L (98-107); Glucose 151 mg/dL (74-99); Potassium 4.3 mmol/L (3.5-5.1); Sodium 138 mmol/L (137-145)
[2019-03-24 08:26] LABS: Glucose,Whole Blood 186 mg/dL (75-99)
[2019-03-24] MEDS: PANTOPRAZOLE 40 MG/10 ML VIAL IVP SCH (08:27)
[2019-03-24] MEDS: GABAPENTIN 400 MG CAP PO SCH ×3 (08:27→19:56)
[2019-03-24] MEDS: IBUPROFEN 600 MG TAB PO PRN ×2 (08:27)
[2019-03-24] MEDS: INSULIN ASPART (NovoLOG) 100 UNIT/ML VIAL SQ SCH ×4 (08:30→20:00)
[2019-03-24] MEDS: metFORMIN 500 MG TAB PO SCH ×2 (08:30→17:02)
[2019-03-24] MEDS: SENNOSIDES-DOCUSATE SODIUM 1 EACH TAB PO SCH ×2 (08:31→19:55)
--- NOTE | 2019-03-24 09:24 | CT ---
EXAMINATION TYPE: CT brain wo con DATE OF EXAM: 03/24/2019 COMPARISON: Prior head CT dated 03/03/2019 HISTORY: Headache, lightheadedness and pain CT DLP: 1076.4 mGycm. Automated Exposure Control for Dose Reduction was Utilized. TECHNIQUE: CT scan of the head is performed without contrast. FINDINGS: There is no acute intracranial hemorrhage, mass effect, or midline shift identified. Crhistiano e periventricular low-attenuation is noted within the white matter similar to prior exam. The ventric les and sulci are within normal limits in size. The globes are intact and the visualized sinuses are clear. IMPRESSION: No acute intracranial hemorrhage, mass effect, or midline shift is seen. Nonspecific whi te matter demyelination, brain MRI may be of benefit.
--- NOTE | 2019-03-24 10:17 | CT ---
EXAMINATION TYPE: CT chest angio for PE DATE OF EXAM: 03/24/2019 COMPARISON: HISTORY: Headache, lightheadedness CT DLP: 1041.4 mGycm Automated exposure control for dose reduction was used. CONTRAST: CT Chest for pulmonary embolism performed with with IV Contrast, patient injected with 100 mL of Isov ue 300. Three-dimensional reconstructions performed on an alternate workstation. FINDINGS: LUNGS: The lungs are grossly clear, there is no concerning parenchymal mass or nodule identified. T here is no pleural effusion or pneumothorax seen. The tracheobronchial tree is patent. Pneumatocele present on axial image 55 measures 17 mm, there are bandlike areas of increased attenuation at the nica ng bases which may reflect atelectasis or scar. MEDIASTINUM: There is satisfactory enhancement of the pulmonary artery and its branches, there is a f illing defect suspected on axial image #[id number] in the right pulmonary artery, coronal image #101 along the wall of the superior margin, sagittal image #70 which may represent adherent thrombus. No additi onal filling defects are evident. There are no greater than 1 cm hilar or mediastinal lymph nodes. No pericardial effusion is seen. AORTA: No additional significant abnormality is seen. OTHER: Cortical defect noted at the lower pole the right kidney may represent scar but is incompletel y evaluated. Thoracic spondylosis is present. IMPRESSION: Findings could be indicative of chronic pulmonary embolus. Additional findings above. A Red level critical message alert has been initiated for Dale Ritter MD via the [employer] Critical Results System on 03/24/2019 9:52 AM. This message alert has been sent to Dale Ritter MD via the preferences provided by the clinician for the receipt of Radiology Critical Findings. [employer] e ID [id number]. Result relayed to the nurse of the patient at the time of interpretation.
[2019-03-24] MEDS ORDERED: HEPARIN SODIUM,PORCINE 5,000 UNIT/ML 1 ML VIAL IV PRN (11:15)
[2019-03-24] MEDS ORDERED: HEPARIN SODIUM,PORCINE 10,000 UNIT/ML 1 ML VIAL IV ONE (11:15)
[2019-03-24 11:41] LABS: INR 0.8 (<1.2); Partial Thromboplastin Time 24.7 sec (22.0-30.0); Prothrombin Time 9.4 sec (9.0-12.0)
[2019-03-24 12:25] LABS: Glucose,Whole Blood 152 mg/dL (75-99)
[2019-03-24] MEDS: HEPARIN SOD,PORK IN 0.45% NACL 25,000 UNIT in 0.45% NACL 1 250ML.BAG IV SCH (12:33)
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
--- NOTE | 2019-03-24 13:02 | US ---
EXAMINATION TYPE: US venous doppler duplex LE DATE OF EXAM: 03/24/2019 12:41 PM COMPARISON: NONE CLINICAL HISTORY: elevated d-dimer, PE. PE. On heparin. Hx recent ectopic sx. Hx DVT in right leg p er patient. SIDE PERFORMED: Bilateral TECHNIQUE: The lower extremity deep venous system is examined utilizing real time linear array sonog monica with graded compression, doppler sonography and color-flow sonography. VESSELS IMAGED: External Iliac Vein (EIV) Common Femoral Vein Deep Femoral Vein Greater Saphenous Vein * Femoral Vein Popliteal Vein Small Saphenous Vein * Proximal Calf Veins (* superficial vessels) Limited due to patient body habitus. Right Leg: Negative for DVT. EIV, CFV and GSV compression deferred due to patient unable to tolerat e due to pain and recent surgery. Left Leg: Negative for DVT IMPRESSION: No evident deep venous thrombosis with limitations as described
--- NOTE | 2019-03-24 13:04 | P.PN ---
Subjective Progress Note Date: 03/24/19 Principal diagnosis: Status post exploratory laparotomy with right salpingectomy due to ruptured ectopic postoperative day #4 Patient was noted to be more short of breath and weak her and therefore testing was performed this morning that showed she does have a PE. She has currently been started on a heparin drip. Her abdominal pain is better at this time. She is still passing flatus but not bowel movement yet. Her vaginal bleeding has been mild. She states she does change her underwear every time she gets up to the bathroom just for cleanliness however it is not saturated. Objective - Vital Signs Vital signs: Vital Signs Temp 98.6 F 03/24/19 07:15 Pulse 66 03/24/19 07:15 Resp 15 03/24/19 07:15 BP 128/81 03/24/19 07:15 Pulse Ox 94 L 03/24/19 07:15 Intake & Output 03/23/19 03/24/19 03/24/19 18:59 06:59 18:59 Intake Total 361 310 Balance 361 310 Intake: Oral 361 Blood Product 310 Rc Pheresis As-3 Unit 310 [id number] Other: Voiding Method Toilet Toilet Toilet # Voids 1 - Gastrointestinal Gastrointestinal Comment(s): Incision is clean dry and intact with lolita in place. General gastrointestinal: Present: normal bowel sounds - Labs CBC & Chem 7: 03/24/19 06:25 03/24/19 06:25 Labs: Abnormal Lab Results - Last 24 Hours (Table) 03/23/19 03/23/19 03/23/19 Range/Units 16:48 18:13 20:07 RBC (3.80-5.40) m/uL Hgb (11.4-16.0) gm/dL Hct (34.0-46.0) % D-Dimer (<0.60) mg/L FEU BUN (7-17) mg/dL Glucose (74-99) mg/dL POC Glucose (mg/dL) 142 H 161 H (75-99) mg/dL Crossmatch See Detail 03/24/19 03/24/19 03/24/19 Range/Units 06:25 06:25 07:03 RBC 3.14 L (3.80-5.40) m/uL Hgb 9.0 L (11.4-16.0) gm/dL Hct 27.7 L (34.0-46.0) % D-Dimer (<0.60) mg/L FEU BUN 4 L (7-17) mg/dL Glucose 151 H (74-99) mg/dL POC Glucose (mg/dL) 176 H (75-99) mg/dL Crossmatch 03/24/19 03/24/19 03/24/19 Range/Units 08:26 09:28 12:23 RBC (3.80-5.40) m/uL Hgb (11.4-16.0) gm/dL Hct (34.0-46.0) % D-Dimer 2.71 H (<0.60) mg/L FEU BUN (7-17) mg/dL Glucose (74-99) mg/dL POC Glucose (mg/dL) 186 H 152 H (75-99) mg/dL Crossmatch Assessment and Plan Assessment: Status post exploratory laparotomy with right salpingectomy due to ruptured ectopic postoperative day #4 Pulmonary embolism (1) Ectopic Current Visit: Yes Status: Acute Code(s): O00.90 - UNSPECIFIED ECTOPIC WITHOUT INTRAUTERINE SNOMED Code(s): 95378443 Plan: Will remove lolita and place Steri-Strips today. From a gynecologic standpoint, she is stable for discharge whenever pulmonary clears her. I would like to see her in the office in approximately 1 week for a postoperative check.
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
[2019-03-24 16:45] LABS: Glucose,Whole Blood 132 mg/dL (75-99)
[2019-03-24 18:21] LABS: Hemoglobin A1C 8.9 % (4.0-6.0)
[2019-03-24] MEDS ORDERED: ONDANSETRON 4 MG/2 ML VIAL IVP PRN (19:13)
[2019-03-24 19:52] LABS: Glucose,Whole Blood 162 mg/dL (75-99)
[2019-03-24] MEDS: BACLOFEN 10 MG TAB PO SCH (19:56)
[2019-03-25] MEDS: traZODone HCL 50 MG TAB PO PRN ×2 (00:12→21:58)
[2019-03-25 03:18] LABS: Basophils # (A) 0.1 k/uL (0-0.2); Basophils % (A) 1 %; Eosinophils # (A) 0.3 k/uL (0-0.7); Eosinophils % (A) 3 %; HGB 8.6 gm/dL (11.4-16.0); Lymphocytes # (A) 3.5 k/uL (1.0-4.8); Lymphocytes % (A) 39 %; MCH 29.2 pg (25.0-35.0); MCHC 32.8 g/dL (31.0-37.0); Monocytes # (A) 0.4 k/uL (0-1.0); Monocytes % (A) 5 %; Neutrophils # (A) 4.6 k/uL (1.3-7.7); Neutrophils % (A) 51 %; Platelet Count 377 k/uL (150-450); RBC 2.92 m/uL (3.80-5.40); RDW 13.5 % (11.5-15.5); WBC 8.9 k/uL (3.8-10.6)
[2019-03-25] MEDS: HEPARIN SOD,PORK IN 0.45% NACL 25,000 UNIT in 0.45% NACL 1 250ML.BAG IV SCH (03:46)
[2019-03-25 04:42] LABS: Folate, Serum 16.7 ng/mL
[2019-03-25] MEDS: HYDROcodone/APAP 10-325MG 1 EACH TAB PO PRN ×3 (06:00→19:29)
[2019-03-25 06:53] LABS: Glucose,Whole Blood 176 mg/dL (75-99)
[2019-03-25] MEDS: GABAPENTIN 400 MG CAP PO SCH ×3 (07:19→19:30)
[2019-03-25] MEDS: SENNOSIDES-DOCUSATE SODIUM 1 EACH TAB PO SCH ×2 (07:19→19:30)
[2019-03-25] MEDS: INSULIN ASPART (NovoLOG) 100 UNIT/ML VIAL SQ SCH ×4 (07:19→19:52)
[2019-03-25] MEDS: metFORMIN 500 MG TAB PO SCH ×2 (07:19→17:07)
[2019-03-25] MEDS: PANTOPRAZOLE 40 MG/10 ML VIAL IVP SCH (07:19)
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
[2019-03-25 11:07] LABS: INR 0.9 (<1.2); Prothrombin Time 10.2 sec (9.0-12.0)
[2019-03-25 11:40] LABS: Glucose,Whole Blood 163 mg/dL (75-99)
--- NOTE | 2019-03-25 11:56 | ECHOF ---
Referral Reason:Pulmonary embolism MEASUREMENTS -------- HEIGHT: 167.6 cm WEIGHT: 113.9 kg BP: 128/81 IVSd: 1.4 cm (0.6 - 1.1) LVIDd: 4.2 cm (3.9 - 5.3) LVPWd: 1.6 cm (0.6 - 1.1) IVSs: 1.9 cm LVIDs: 2.5 cm LVPWs: 2.1 cm RVIDd: 4.0 cm (< 3.3) LAESV Index (A-L): 23.72 ml/m Ao Diam: 2.8 cm (2.0 - 3.7) LA Diam: 4.1 cm (2.7 - 3.8) AV Cusp: 1.9 cm (1.5 - 2.6) EPSS: 0.3 cm MV E Edin: 1.02 m/s MV DecT: 223 ms MV A Edin: 0.86 m/s MV E/A Ratio: 1.19 RAP: 20.00 mmHg RVSP: 35.23 mmHg MV EF SLOPE: 63.72 mm/s (70 - 150) MV EXCURSION: 15.28 mm (> 18.000) FINDINGS -------- Sinus rhythm. This was a technically difficult study with suboptimal apical views. Morbid Obesity The left ventricular size is normal. There is moderate concentric left ventricular hypertrophy. O verall left ventricular systolic function is normal with, an EF between 55 - 60 %. Normal diastolic f unction. The right ventricle is mild to moderately enlarged. Normal LA size by volume 22+/-6 ml/m2. The right atrium is mildly enlarged. 5.0mg of Lumason was utilized for enhancement of images Interatrial and interventricular septum intact. The aortic valve is trileaflet and appears structurally normal. There is no evidence of aortic regu rgitation. There is no evidence of aortic stenosis. No mitral regurgitation. Mild tricuspid regurgitation present. There is mild pulmonary hypertension. The right ventricular systolic pressure, as measured by Doppler, is 35.23mmHg. There is no pulmonic regurgitation present. The aortic root size is normal. The inferior vena cava is dilated with poor inspiratory collapse which is consistent with estimated r ight atrial pressure of 20 mmHg. Echo free space represents a pericardial fat pad. There is no pericardial effusion. CONCLUSIONS -------- 1. Sinus rhythm. 2. This was a technically difficult study with suboptimal apical views. 3. Morbid Obesity 4. The left ventricular size is normal. 5. There is moderate concentric left ventricular hypertrophy. 6. Overall left ventricular systolic function is normal with, an EF between 55 - 60 %. Normal diastol ic function. 7. The right ventricle is mild to moderately enlarged. 8. Normal LA size by volume 22+/-6 ml/m2. 9. The right atrium is mildly enlarged. 10. 5.0mg of Lumason was utilized for enhancement of images 11. Interatrial and interventricular septum intact. 12. The aortic valve is trileaflet and appears structurally normal. 13. There is no evidence of aortic regurgitation. 14. There is no evidence of aortic stenosis. 15. No mitral regurgitation. 16. Mild tricuspid regurgitation present. 17. There is mild pulmonary hypertension. 18. The right ventricular systolic pressure, as measured by Doppler, is 35.23mmHg. 19. There is no pulmonic regurgitation present. 20. The aortic root size is normal. 21. The inferior vena cava is dilated with poor inspiratory collapse which is consistent with estimat ed right atrial pressure of 20 mmHg. 22. Echo free space represents a pericardial fat pad. 23. There is no pericardial effusion. ICE SKATING TEACHER: Donna Preciado RDCS
[2019-03-25] MEDS: RIVAROXABAN 15 MG TAB PO SCH ×2 (11:57→17:40)
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
[2019-03-25 16:55] LABS: Glucose,Whole Blood 133 mg/dL (75-99)
[2019-03-25] MEDS: BACLOFEN 10 MG TAB PO SCH (19:30)
[2019-03-25 19:43] LABS: Glucose,Whole Blood 139 mg/dL (75-99)
[2019-03-25] MEDS: IBUPROFEN 600 MG TAB PO PRN (21:55)
[2019-03-26] MEDS: HYDROcodone/APAP 10-325MG 1 EACH TAB PO PRN ×4 (02:21→22:12)
[2019-03-26 07:01] LABS: Glucose,Whole Blood 159 mg/dL (75-99)
[2019-03-26 07:45] LABS: Basophils # (A) 0.1 k/uL (0-0.2); Basophils % (A) 1 %; Eosinophils # (A) 0.2 k/uL (0-0.7); Eosinophils % (A) 3 %; HCT 27.8 % (34.0-46.0); HGB 8.7 gm/dL (11.4-16.0); Lymphocytes # (A) 3.2 k/uL (1.0-4.8); Lymphocytes % (A) 41 %; MCH 28.1 pg (25.0-35.0); MCHC 31.4 g/dL (31.0-37.0); MCV 89.4 fL (80.0-100.0); Mean Platelet Volume 7.3; Monocytes # (A) 0.3 k/uL (0-1.0); Monocytes % (A) 4 %; Neutrophils # (A) 3.9 k/uL (1.3-7.7); Neutrophils % (A) 50 %; Platelet Count 440 k/uL (150-450); RBC 3.11 m/uL (3.80-5.40); RDW 13.5 % (11.5-15.5); WBC 7.7 k/uL (3.8-10.6)
[2019-03-26 07:57] LABS: Partial Thromboplastin Time 30.3 sec (22.0-30.0); Prothrombin Time 10.5 sec (9.0-12.0)
[2019-03-26] MEDS: metFORMIN 500 MG TAB PO SCH ×2 (10:19→17:00)
[2019-03-26] MEDS: SENNOSIDES-DOCUSATE SODIUM 1 EACH TAB PO SCH ×2 (10:20→20:47)
[2019-03-26] MEDS: GABAPENTIN 400 MG CAP PO SCH ×3 (10:20→20:46)
[2019-03-26] MEDS: PANTOPRAZOLE 40 MG TABLET PO SCH (10:21)
[2019-03-26] MEDS: RIVAROXABAN 15 MG TAB PO SCH ×2 (10:21→17:00)
[2019-03-26] MEDS: INSULIN ASPART (NovoLOG) 100 UNIT/ML VIAL SQ SCH ×4 (10:22→20:47)
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
[2019-03-26 11:31] LABS: Glucose,Whole Blood 185 mg/dL (75-99)
[2019-03-26] MEDS ORDERED: diphenhydrAMINE 25 MG CAP PO PRN (11:46)
--- NOTE | 2019-03-26 13:44 | PN ---
PROGRESS NOTE DATE OF SERVICE: 03/25/2019 female found to have possible filling defect, right pulmonary artery. She is started on blood thinners. She had a spirometer at 3000 to 3500. Pulse ox is 94% on room air. She seems more happy today. CARDIOVASCULAR: S1, S2. LUNGS: Clear. GI: Soft. HEMATOLOGY: Negative Eliseo. ASSESSMENT: 1. Pulmonary embolism, possibly chronic. 2. History of ectopic , status post surgery. 3. History of diabetes and hypertension. 4. Possible sleep apnea. Starting on long-term anticoagulants. Check CBC in the morning. Possible discharge home soon. MMODL / IJN: [id number] /
[2019-03-26 14:23] VITALS: BMI 40.6
[2019-03-26 16:49] LABS: Glucose,Whole Blood 119 mg/dL (75-99)
[2019-03-26 20:39] LABS: Glucose,Whole Blood 194 mg/dL (75-99)
[2019-03-26] MEDS: BACLOFEN 10 MG TAB PO SCH (20:47)
[2019-03-26] MEDS: traZODone HCL 50 MG TAB PO PRN (22:12)
--- NOTE | 2019-03-26 22:41 | PN ---
PROGRESS NOTE SUBJECTIVE: [id number]-old black female started on Xarelto 50 mg b.i.d. Hemoglobin has been stabilized. On Xarelto. She has severe lumbar radiculopathy, for which she will need physical therapy. She wants to go home tomorrow and see her doctor on Friday. She will be discharged home tomorrow. CARDIOVASCULAR: S1, S2. LUNGS: Clear. GI: Soft. HEMATOLOGY: Negative Homans. ASSESSMENT: 1. Pulmonary embolism. 2. Lumbar radiculopathy. 3. Diabetes mellitus. 4. Status post ectopic . Please see further orders. MMODL / IJN: [id number] /
[2019-03-27] MEDS: HYDROcodone/APAP 10-325MG 1 EACH TAB PO PRN ×3 (06:14→21:02)
[2019-03-27 06:54] LABS: Glucose,Whole Blood 169 mg/dL (75-99)
[2019-03-27 07:43] LABS: Basophils # (A) 0.2 k/uL (0-0.2); Basophils % (A) 2 %; Eosinophils # (A) 0.2 k/uL (0-0.7); Eosinophils % (A) 2 %; HCT 28.2 % (34.0-46.0); HGB 8.7 gm/dL (11.4-16.0); Lymphocytes % (A) 37 %; MCH 27.7 pg (25.0-35.0); MCHC 30.7 g/dL (31.0-37.0); MCV 90.2 fL (80.0-100.0); Mean Platelet Volume 7.8; Monocytes # (A) 0.3 k/uL (0-1.0); Monocytes % (A) 4 %; Neutrophils # (A) 4.3 k/uL (1.3-7.7); Neutrophils % (A) 53 %; Platelet Count 399 k/uL (150-450); RBC 3.12 m/uL (3.80-5.40); RDW 13.6 % (11.5-15.5); WBC 8.1 k/uL (3.8-10.6)
[2019-03-27] MEDS: INSULIN ASPART (NovoLOG) 100 UNIT/ML VIAL SQ SCH ×4 (07:55→21:06)
[2019-03-27] MEDS: PANTOPRAZOLE 40 MG TABLET PO SCH (10:07)
[2019-03-27] MEDS: metFORMIN 500 MG TAB PO SCH ×2 (10:08→18:01)
[2019-03-27] MEDS: SENNOSIDES-DOCUSATE SODIUM 1 EACH TAB PO SCH ×2 (10:08→21:29)
[2019-03-27] MEDS: GABAPENTIN 400 MG CAP PO SCH ×3 (10:08→21:30)
[2019-03-27] MEDS: RIVAROXABAN 15 MG TAB PO SCH ×2 (10:08→18:01)
[2019-03-27] MEDS: IBUPROFEN 600 MG TAB PO PRN (10:15)
[2019-03-27 11:43] LABS: Glucose,Whole Blood 172 mg/dL (75-99)
[2019-03-27 16:49] LABS: Glucose,Whole Blood 254 mg/dL (75-99)
[2019-03-27 21:15] LABS: Glucose,Whole Blood 105 mg/dL (75-99)
[2019-03-27] MEDS: BACLOFEN 10 MG TAB PO SCH (21:29)
[2019-03-27] MEDS: traZODone HCL 50 MG TAB PO PRN (21:30)
[2019-03-28 01:38] LABS: Glucose,Whole Blood 183 mg/dL (75-99)
[2019-03-28] MEDS: HYDROcodone/APAP 10-325MG 1 EACH TAB PO PRN ×4 (02:27→22:17)
[2019-03-28 06:40] LABS: Basophils # (A) 0.1 k/uL (0-0.2); Basophils % (A) 1 %; Eosinophils # (A) 0.2 k/uL (0-0.7); Eosinophils % (A) 3 %; HCT 27.4 % (34.0-46.0); HGB 9.1 gm/dL (11.4-16.0); Lymphocytes # (A) 3.6 k/uL (1.0-4.8); Lymphocytes % (A) 41 %; MCHC 33.3 g/dL (31.0-37.0); Mean Platelet Volume 7.6; Monocytes # (A) 0.3 k/uL (0-1.0); Monocytes % (A) 3 %; Neutrophils # (A) 4.6 k/uL (1.3-7.7); Neutrophils % (A) 52 %; Platelet Count 450 k/uL (150-450); RBC 3.15 m/uL (3.80-5.40); RDW 13.5 % (11.5-15.5)
[2019-03-28 06:49] LABS: Glucose,Whole Blood 145 mg/dL (75-99)
[2019-03-28] MEDS: INSULIN ASPART (NovoLOG) 100 UNIT/ML VIAL SQ SCH ×4 (07:30→22:09)
--- NOTE | 2019-03-28 07:30 | PN ---
PROGRESS NOTE She is on oral blood thinners now Xarelto 15 mg b.i.d. Hemoglobin stable at 8.7 and will be rechecked tomorrow. Cardiovascular S1, S2. Lungs clear. Musculoskeletal: Left leg straight leg raising test. ASSESSMENT: 1. Lumbar radiculopathy. 2. Status post ectopic . 3. Status post pulmonary embolism. Rehab center will be placement for rehab approval pending discharge after approval once insurance is made for rehab. MMODL / IJN: [id number] /
[2019-03-28] MEDS: RIVAROXABAN 15 MG TAB PO SCH ×2 (08:38→17:39)
[2019-03-28] MEDS: SENNOSIDES-DOCUSATE SODIUM 1 EACH TAB PO SCH ×2 (08:38→22:09)
[2019-03-28] MEDS: metFORMIN 500 MG TAB PO SCH ×2 (08:38→17:40)
[2019-03-28] MEDS: PANTOPRAZOLE 40 MG TABLET PO SCH (08:38)
[2019-03-28] MEDS: IBUPROFEN 600 MG TAB PO PRN ×2 (08:39→15:21)
[2019-03-28] MEDS: GABAPENTIN 400 MG CAP PO SCH ×3 (08:39→22:09)
[2019-03-28 11:44] LABS: Glucose,Whole Blood 160 mg/dL (75-99)
[2019-03-28 16:48] LABS: Glucose,Whole Blood 131 mg/dL (75-99)
--- NOTE | 2019-03-28 20:03 | PN ---
PROGRESS NOTE DATE OF SERVICE: 03/28/2019 female status post ectopic . Hemoglobin is stable. She has been started on Xarelto 15 b.i.d. for pulmonary embolism. She wants to go to rehab placement for lumbar radiculopathy on her lower back and she has go home. Cardiovascular: S1-S2. Lungs are clear. GI is soft. Musculoskeletal, straight leg raising test 45 degrees, left side. ASSESSMENT: 1. Lumbar radiculopathy. 2. Ectopic . 3. Degenerative disc disease. 4. Neuropathy. 5. Diabetes mellitus. 6. Severe anemia. 7. Pulmonary embolism. Continue current treatment. Follow up in next 24-48 hours for discharge to [facility] for rehab placement. MMODL / IJN: [id number] /
[2019-03-28] MEDS: BACLOFEN 10 MG TAB PO SCH (22:09)
[2019-03-28] MEDS: traZODone HCL 50 MG TAB PO PRN (22:17)
[2019-03-28 22:19] LABS: Glucose,Whole Blood 186 mg/dL (75-99)
[2019-03-29 00:59] VITALS: RESP 16
[2019-03-29] MEDS: HYDROcodone/APAP 10-325MG 1 EACH TAB PO PRN ×3 (04:23→15:21)
[2019-03-29 06:52] LABS: Glucose,Whole Blood 127 mg/dL (75-99)
[2019-03-29] MEDS: INSULIN ASPART (NovoLOG) 100 UNIT/ML VIAL SQ SCH ×3 (06:58→16:46)
[2019-03-29] MEDS: PANTOPRAZOLE 40 MG TABLET PO SCH (09:27)
[2019-03-29] MEDS: RIVAROXABAN 15 MG TAB PO SCH ×2 (09:28→16:52)
[2019-03-29] MEDS: SENNOSIDES-DOCUSATE SODIUM 1 EACH TAB PO SCH (09:28)
[2019-03-29] MEDS: GABAPENTIN 400 MG CAP PO SCH ×2 (09:28→16:53)
[2019-03-29] MEDS: metFORMIN 500 MG TAB PO SCH ×2 (09:28→16:52)
[2019-03-29 11:31] LABS: Glucose,Whole Blood 157 mg/dL (75-99)
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
--- NOTE | 2019-03-29 13:28 | PN ---
PROGRESS NOTE This is a female, status post ectopic surgery, started on Xarelto 50 mg b.i.d. 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 Sugars have been mid 100. She has history of diabetes. She has lumbar radiculopathy for which she needs surgery versus physical therapy. She is waiting for rehab placement. Waiting for insurance to approve it. CARDIOVASCULAR: S1, S2. LUNGS: Clear. MUSCULOSKELETAL: Straight leg raise test 45 degrees on left side. ENDOCRINE: BMI is over 40. ASSESSMENT: 1. Pulmonary embolism. 2. Ectopic , surgery. 3. Lumbar radiculopathy. 4. Diabetes mellitus. 5. Mild depression. Continue with current PT, OT. Pancreatitis is back to normal. PT, OT, rehab placement. Await placement at this time. MMODL / IJN: [id number] /
[2019-03-29 16:10] VITALS: BP 102/65; PULSE 77; TEMP 98.8
[2019-03-29 16:33] LABS: Glucose,Whole Blood 142 mg/dL (75-99)
== END 2019-03-29 18:04 | disposition home health service (06) | DRG 817 ==
LOC: 6PED 01:05 → OBSVTOIN 01:05 → 4SSUR 07:05
PROVIDERS: ADMIT Family Medicine; ATTEND Family Medicine
PROC: 0UT50ZZ Resection of Right Fallopian Tube, Open Approach (ICD-10-PCS; 2019-03-20)
PROC: 10T20ZZ Resection of Products of Conception, Ectopic, Open Approach (ICD-10-PCS; principal; 2019-03-20 06:26)
DX: O00.101 Right tubal pregnancy without intrauterine pregnancy (principal); K66.1 Hemoperitoneum; K85.90 Acute pancreatitis without necrosis or infection, unspecified; D62 Acute posthemorrhagic anemia; I27.82 Chronic pulmonary embolism; E11.40 Type 2 diabetes mellitus with diabetic neuropathy, unspecified; F17.210 Nicotine dependence, cigarettes, uncomplicated; F41.8 Other specified anxiety disorders; F43.10 Post-traumatic stress disorder, unspecified; G89.4 Chronic pain syndrome; I10 Essential (primary) hypertension; I27.20 Pulmonary hypertension, unspecified; M48.061 Spinal stenosis, lumbar region without neurogenic claudication; M51.16 Intervertebral disc disorders with radiculopathy, lumbar region; N83.10 Corpus luteum cyst of ovary, unspecified side; O09.529 Supervision of elderly multigravida, unspecified trimester; V43.52XD Car driver injured in collision with other type car in traffic accident, subsequent encounter; Z79.84 Long term (current) use of oral hypoglycemic drugs; Z79.899 Other long term (current) drug therapy; Z82.3 Family history of stroke; Z82.49 Family history of ischemic heart disease and other diseases of the circulatory system; Z83.3 Family history of diabetes mellitus; Z98.51 Tubal ligation status; Z98.891 History of uterine scar from previous surgery
CPT/HCPCS: 70450; 71275; 80048; 82607; 82746; 83036; 83690; 85025; 85027; 85379; 85610; 85730; 86780; 86850; 86900; 86901; 86920; 88305; 93005; 93306; 93970; 94760; 94762

== ENCOUNTER → 2019-07-08 | Outpatient (CLI) | payer OTHER ==
[2019-07-08 09:20] LABS: INR 0.9 (<1.2); Prothrombin Time 9.4 sec (9.0-12.0)
[2019-07-08 09:23] LABS: Basophils % (A) 0 %; Eosinophils # (A) 0.1 k/uL (0-0.7); Eosinophils % (A) 1 %; HCT 31.2 % (34.0-46.0); HGB 9.6 gm/dL (11.4-16.0); Lymphocytes # (A) 2.3 k/uL (1.0-4.8); Lymphocytes % (A) 30 %; MCHC 30.7 g/dL (31.0-37.0); MCV 84.7 fL (80.0-100.0); Mean Platelet Volume 8.8; Monocytes # (A) 0.3 k/uL (0-1.0); Monocytes % (A) 3 %; Neutrophils # (A) 4.7 k/uL (1.3-7.7); Neutrophils % (A) 63 %; Platelet Count 394 k/uL (150-450); RBC 3.68 m/uL (3.80-5.40); RDW 14.3 % (11.5-15.5); WBC 7.5 k/uL (3.8-10.6)
[2019-07-08 16:14] LABS: Ferritin 41.8 ng/mL (10.0-291.0)
[2019-07-08 16:33] LABS: Hemoglobin A1C 9.8 % (4.0-6.0)
[2019-07-08 16:40] LABS: % Iron Saturation 11.67 (12.00-45.00); African American GFR (CKD) 103.9 (60.0-200.0); Albumin 4.1 g/dL (3.80-4.90); Albumin/Globulin Ratio 1.37 (1.60-3.17); Anion Gap 7.1 mmol/L (4.00-12.00); Calcium 9.3 mg/dL (8.7-10.3); Carbon Dioxide 24.9 mmol/L (21.6-31.8); Non-African American GFR(CKD) 89.7 (60.0-200.0); Potassium 4.3 mmol/L (3.5-5.5); Total Bilirubin 0.2 mg/dL (0.3-1.2); Total Protein 7.1 g/dL (6.2-8.2)
== END | disposition home or self-care (01) ==
LOC: LABWHC1 08:17
DX: Z01.812 Encounter for preprocedural laboratory examination (principal)
CPT/HCPCS: 36415; 80053; 82728; 83036; 83540; 83550; 85025; 85610; 85730

== ENCOUNTER 2019-10-15 12:33 | Emergency (ER) | payer OTHER ==
[2019-10-15] MEDS ORDERED: SODIUM CHLORIDE 0.9% 1,000 ML IV STA (13:09)
--- NOTE | 2019-10-15 13:11 | ED ---
General Adult HPI - General Chief complaint: Recheck/Abnormal Lab/Rx Stated complaint: DKA Time Seen by Provider: 10/15/19 12:50 Source: patient Mode of arrival: ambulatory Limitations: no limitations - History of Present Illness Initial comments: Dictation was produced using [employer] dictation software. please excuse any grammatical, word or spelling errors. This patient was cared for during a federal and state declared state of emergency secondary to Covid 19 Chief Complaint: 44-year-old female with iun-npsyhnc-auzetoepc diabetes mellitus presents with concerns of DKA. History of Present Illness: Patient is a 44-year-old female she has past medical history of diabetes. She takes antidiabetic medications. Patient states that over the last 4 days she feels like she is developing DKA again. Patient states that she knows she has DKA because she feels weak. She does not have a glucometer at home. She does not check her glucose regularly. She does not take insulin. Patient takes glipizide and metformin. Denies any fever, chills or night sweats. No nausea. She does not repeat complaints. She decided to come today because her family member did not give her an option to not come. The ROS documented in this emergency department record has been reviewed and confirmed by me. Those systems with pertinent positive or negative responses have been documented in the HPI. All other systems are other negative and/or noncontributory. PHYSICAL EXAM: General Impression: Alert and oriented x3, not in acute distress HEENT: Normocephalic atraumatic, extra-ocular movements intact, pupils equal and reactive to light bilaterally, dry mucous membranes Cardiovascular: Heart regular rate and rhythm Chest: Able to complete full sentences, no retractions, no tachypnea Abdomen: abdomen soft, non-tender, non-distended, no organomegaly Musculoskeletal: Pulses present and equal in all extremities, no peripheral edema Motor: no focal deficits noted Neurological: CN II-XII grossly intact, no focal motor or sensory deficits noted Skin: Intact with no visualized rashes Psych: Normal affect and mood ED course: 44-year-old male presents with generalized weakness. She is concerned that she has diabetic ketoacidosis. All signs upon arrival are within acceptable limits. Abdomen evaluation obtained. CBC, metabolic panels within acceptable limits. Patient is hyperglycemic with the level of 245. Patient given 1 L normal saline bolus. No anion gap acidosis. Venous blood gas was obtained showing no acidosis. Urinalysis consistent with dehydration and urinary tract infection. Patient given intravenous fluids per she is given 1 g of ceftriaxone. Patient tolerate oral at bedside. Patient appears stable for discharge. She is given oral antibiotics to take at home. Patient is also given a starter pack for a ntiemetics. Patient's told that she is dehydrated and that she needs to drink more fluids. She is advised to follow-up with her primary care physician for outpatient management of her symptoms. Return parameters discussed. Patient clear for discharge. - Related Data Home Medications Medication Instructions Recorded Confirmed traZODone HCL [Desyrel] 25 mg PO HS PRN 01/18/19 03/20/19 Baclofen [Lioresal] 10 mg PO HS 03/03/19 03/20/19 Ergocalciferol [Vitamin D2 50,000 unit PO Q7D 03/03/19 03/20/19 (DRISDOL)] Gabapentin 800 mg PO TID 03/03/19 03/20/19 HYDROcodone/APAP 10-325MG [M[place]ard 1 tab PO TID PRN 03/03/19 03/20/19 10-325] glipiZIDE [Glucotrol] 5 mg PO DAILY 03/03/19 03/20/19 metFORMIN HCL 1,000 mg PO BID 03/03/19 03/20/19 Previous Rx's Medication Instructions Recorded Ibuprofen 600 mg PO Q6H PRN #1 tablet 03/22/19 Sennosides-Docusate Sodium 2 each PO BID tab 03/22/19 [Senokot-S] Rivaroxaban [Xarelto Starter Pack] 0 mg PO DIRECTED 30 Days #1 pack 03/25/19 Cephalexin [Keflex] 500 mg PO Q6HR 10 Days #40 cap 10/15/19 Ondansetron Odt [Zofran Odt] 4 mg PO Q8HR PRN #12 tab 10/15/19 Allergies Allergy/AdvReac Type Severity Reaction Status Date / Time morphine Allergy Unknown Verified 10/15/19 12:45 Review of Systems ROS Statement: Those systems with pertinent positive or pertinent negative responses have been documented in the HPI. ROS Other: All systems not noted in ROS Statement are negative. Past Medical History Past Medical History: Diabetes Mellitus, Musculoskeletal Disorder Additional Past Medical History / Comment(s): neuropathy, bulging discs, sciatic nerve pain, anxiety, depression History of Any Multi-Drug Resistant Organisms: None Reported Past Surgical History: Section, Tubal Ligation Additional Past Surgical History / Comment(s): C section x3, back surgery Past Psychological History: Anxiety, Depression Smoking Status: Current every day smoker Past Alcohol Use History: None Reported Past Drug Use History: Marijuana - Past Family History Mother Family Medical History: Cancer, Diabetes Mellitus, Hypertension Father Family Medical History: Coronary Artery Disease (CAD), CVA/TIA, Hypertension General Exam Limitations: no limitations Course Vital Signs 10/15/19 10/15/19 10/15/19 12:41 13:30 14:09 Temperature 98.5 F Pulse Rate 66 63 62 Respiratory 18 20 18 Rate Blood Pressure 167/102 152/97 150/96 O2 Sat by Pulse 98 99 100 Oximetry 10/15/19 15:06 Temperature 99.1 F Pulse Rate 65 Respiratory 17 Rate Blood Pressure 153/71 O2 Sat by Pulse 96 Oximetry Medical Decision Making - Lab Data Result diagrams: 10/15/19 13:59 10/15/19 13:59 Lab Results 10/15/19 10/15/19 10/15/19 Range/Units 13:21 13:59 13:59 WBC 11.9 H (3.8-10.6) k/uL RBC 4.08 (3.80-5.40) m/uL Hgb 10.6 L (11.4-16.0) gm/dL Hct 33.4 L (34.0-46.0) % MCV 82.0 (80.0-100.0) fL MCH 26.0 (25.0-35.0) pg MCHC 31.7 (31.0-37.0) g/dL RDW 15.2 (11.5-15.5) % Plt Count 515 H (150-450) k/uL Neutrophils % 62 % Lymphocytes % 31 % Monocytes % 4 % Eosinophils % 1 % Basophils % 1 % Neutrophils # 7.4 (1.3-7.7) k/uL Lymphocytes # 3.8 (1.0-4.8) k/uL Monocytes # 0.5 (0-1.0) k/uL Eosinophils # 0.1 (0-0.7) k/uL Basophils # 0.1 (0-0.2) k/uL VBG pH (7.31-7.41) VBG pCO2 (37-51) mmHg VBG HCO3 (24-28) mmol/L Sodium 136 L (137-145) mmol/L Potassium 4.5 (3.5-5.1) mmol/L Chloride 98 (98-107) mmol/L Carbon Dioxide 25 (22-30) mmol/L Anion Gap 13 mmol/L BUN 14 (7-17) mg/dL Creatinine 0.77 (0.52-1.04) mg/dL Est GFR (CKD-EPI)AfAm >90 (>60 ml/min/1.73 sqM) Est GFR (CKD-EPI)NonAf >90 (>60 ml/min/1.73 sqM) Glucose 245 H (74-99) mg/dL POC Glucose (mg/dL) 263 H (75-99) mg/dL POC Glu Physician Internist ID Daniel, Dara Calcium 10.0 (8.4-10.2) mg/dL Phosphorus 3.3 (2.5-4.5) mg/dL Urine Color Urine Appearance (Clear) Urine pH (5.0-8.0) Ur Specific Magna (1.001-1.035) Urine Protein (Negative) Urine Glucose (UA) (Negative) Urine Ketones (Negative) Urine Blood (Negative) Urine Nitrite (Negative) Urine Bilirubin (Negative) Urine Urobilinogen (<2.0) mg/dL Ur Leukocyte Esterase (Negative) Urine RBC (0-5) /hpf Urine WBC (0-5) /hpf Ur Squamous Epith Cells (0-4) /hpf Urine Bacteria (None) /hpf Hyaline Casts (0-2) /lpf Urine Mucus (None) /hpf 10/15/19 10/15/19 Range/Units 13:59 14:17 WBC (3.8-10.6) k/uL RBC (3.80-5.40) m/uL Hgb (11.4-16.0) gm/dL Hct (34.0-46.0) % MCV (80.0-100.0) fL MCH (25.0-35.0) pg MCHC (31.0-37.0) g/dL RDW (11.5-15.5) % Plt Count (150-450) k/uL Neutrophils % % Lymphocytes % % Monocytes % % Eosinophils % % Basophils % % Neutrophils # (1.3-7.7) k/uL Lymphocytes # (1.0-4.8) k/uL Monocytes # (0-1.0) k/uL Eosinophils # (0-0.7) k/uL Basophils # (0-0.2) k/uL VBG pH 7.33 (7.31-7.41) VBG pCO2 48 (37-51) mmHg VBG HCO3 25 (24-28) mmol/L Sodium (137-145) mmol/L Potassium (3.5-5.1) mmol/L Chloride (98-107) mmol/L Carbon Dioxide (22-30) mmol/L Anion Gap mmol/L BUN (7-17) mg/dL Creatinine (0.52-1.04) mg/dL Est GFR (CKD-EPI)AfAm (>60 ml/min/1.73 sqM) Est GFR (CKD-EPI)NonAf (>60 ml/min/1.73 sqM) Glucose (74-99) mg/dL POC Glucose (mg/dL) (75-99) mg/dL POC Glu Physician Internist ID Calcium (8.4-10.2) mg/dL Phosphorus (2.5-4.5) mg/dL Urine Color Yellow Urine Appearance Cloudy H (Clear) Urine pH 6.0 (5.0-8.0) Ur Specific Magna 1.032 (1.001-1.035) Urine Protein 3+ H (Negative) Urine Glucose (UA) Trace H (Negative) Urine Ketones 3+ H (Negative) Urine Blood Moderate H (Negative) Urine Nitrite Negative (Negative) Urine Bilirubin Negative (Negative) Urine Urobilinogen <2.0 (<2.0) mg/dL Ur Leukocyte Esterase Large H (Negative) Urine RBC 124 H (0-5) /hpf Urine WBC 37 H (0-5) /hpf Ur Squamous Epith Cells 7 H (0-4) /hpf Urine Bacteria Rare H (None) /hpf Hyaline Casts 43 H (0-2) /lpf Urine Mucus Moderate H (None) /hpf Disposition Clinical Impression: UTI (urinary tract infection), Dehydration Disposition: HOME SELF-CARE Condition: Fair Instructions (If sedation given, give patient instructions): Dehydration (ED), Urinary Tract Infection in Women (DC) Additional Instructions: Today were seen and evaluated in the emergency department. You are diagnosed with urinary tract infection and dehydration. Please drink at least 8-10 glasses of water a day. It is important that you follow-up with her primary care physician for reevaluation. Please seek medical attention with worsening symptoms including fever, chills night sweats, flank pain or inability to tolerate oral medications. Furthermore, you would benefit from follow-up to PCP for tighter control of diabetes with medications. Your prescriptions from the emergency department were sent to your preferred pharmacy [facility]. Prescriptions: Cephalexin [Keflex] 500 mg PO Q6HR 10 Days #40 cap Ondansetron Odt [Zofran Odt] 4 mg PO Q8HR PRN #12 tab PRN Reason: Nausea Is patient prescribed a controlled substance at d/c from ED?: No Referrals: Nonstaff,Physician [REFERRING] - 1-2 days Time of Disposition: 15:38
[2019-10-15 13:22] LABS: Glucose,Whole Blood 263 mg/dL (75-99)
[2019-10-15 14:30] LABS: Basophils # (A) 0.1 k/uL (0-0.2); Basophils % (A) 1 %; Eosinophils # (A) 0.1 k/uL (0-0.7); Eosinophils % (A) 1 %; HCT 33.4 % (34.0-46.0); HGB 10.6 gm/dL (11.4-16.0); Lymphocytes # (A) 3.8 k/uL (1.0-4.8); Lymphocytes % (A) 31 %; MCHC 31.7 g/dL (31.0-37.0); Mean Platelet Volume 8.6; Monocytes # (A) 0.5 k/uL (0-1.0); Monocytes % (A) 4 %; Neutrophils # (A) 7.4 k/uL (1.3-7.7); Neutrophils % (A) 62 %; Platelet Count 515 k/uL (150-450); RBC 4.08 m/uL (3.80-5.40); RDW 15.2 % (11.5-15.5); WBC 11.9 k/uL (3.8-10.6)
[2019-10-15 14:31] LABS: VBG PH 7.33 (7.31-7.41)
[2019-10-15 14:47] LABS: African American GFR (CKD) >90 (>60 ml/min/1.73 sqM); Anion Gap 13 mmol/L; Blood Urea Nitrogen 14 mg/dL (7-17); Carbon Dioxide 25 mmol/L (22-30); Chloride 98 mmol/L (98-107); Glucose 245 mg/dL (74-99); Non-African American GFR(CKD) >90 (>60 ml/min/1.73 sqM); Phosphorus 3.3 mg/dL (2.5-4.5); Potassium 4.5 mmol/L (3.5-5.1); Sodium 136 mmol/L (137-145)
[2019-10-15 15:15] LABS: Appearance,Urine Cloudy (Clear); Bacteria,Urine Rare /hpf; Bilirubin,Urine Negative (Negative); Blood,Urine Moderate (Negative); Color,Urine Yellow; Glucose,Urine (UA) Trace (Negative); Hyaline Casts,Urine 43 /lpf (0-2); Ketones,Urine 3+ (Negative); Leukocyte Esterase,Urine Large (Negative); Mucus,Urine Moderate /hpf; Nitrite,Urine Negative (Negative); Protein,Urine 3+ (Negative); RBC,Urine 124 /hpf (0-5); Specific Gravity,Urine 1.032 (1.001-1.035); Squamous Epithelial Cell,Urine 7 /hpf (0-4); Urobilinogen,Urine <2.0 mg/dL (<2.0); WBC,Urine 37 /hpf (0-5)
[2019-10-15 15:28] VITALS: TEMP 99.1
[2019-10-15] MEDS ORDERED: cefTRIAXone IN SWFI 1,000 MG/10 ML SYRINGE IVP STA (15:28)
[2019-10-15] MEDS ORDERED: ONDANSETRON 4 MG/2 ML VIAL IVP STA (15:33)
[2019-10-15 15:34] LABS: Glucose,Whole Blood 230 mg/dL (75-99)
[2019-10-15] MEDS ORDERED: ONDANSETRON 4 MG ODT STARTER PACK 2 TAB BTL PO STA (15:38)
[2019-10-15] MEDS ORDERED: KETOROLAC 30 MG/ML 1 ML VIAL IVP STA (15:40)
[2019-10-15 16:37] VITALS: BP 153/81; PULSE 66; RESP 20
== END 2019-10-15 16:36 | disposition home or self-care (01) ==
LOC: EC 12:33
DX: N39.0 Urinary tract infection, site not specified (principal); E86.0 Dehydration; E11.40 Type 2 diabetes mellitus with diabetic neuropathy, unspecified; F41.9 Anxiety disorder, unspecified; F32.9 Major depressive disorder, single episode, unspecified; F17.200 Nicotine dependence, unspecified, uncomplicated; Z79.84 Long term (current) use of oral hypoglycemic drugs; Z79.899 Other long term (current) drug therapy; Z88.5 Allergy status to narcotic agent
CPT/HCPCS: 36415; 80048; 82803; 84100; 85025; 81001; 87086; 99283; 96374; 96375 ×2; 96361; J2405; J0696; J1885; S0119

== ENCOUNTER 2020-08-20 17:22 | Inpatient (IN) | payer MEDICARE, OTHER ==
[2020-08-20] MEDS ORDERED: SODIUM CHLORIDE 0.9% 1,000 ML IV STA (18:19)
[2020-08-20] MEDS ORDERED: ONDANSETRON 4 MG/2 ML VIAL IVP STA (18:20)
[2020-08-20 20:09] LABS: ALT 17 U/L (4-34); AST 38 U/L (14-36); African American GFR (CKD) 87 (>60 ml/min/1.73 sqM); Albumin 4.6 g/dL (3.5-5.0); Alkaline Phosphatase 174 U/L (38-126); Anion Gap 16 mmol/L; Blood Urea Nitrogen 15 mg/dL (7-17); Calcium 10.3 mg/dL (8.4-10.2); Carbon Dioxide 21 mmol/L (22-30); Chloride 99 mmol/L (98-107); Glucose 266 mg/dL (74-99); Magnesium 1.7 mg/dL (1.6-2.3); Non-African American GFR(CKD) 76 (>60 ml/min/1.73 sqM); Potassium 3.9 mmol/L (3.5-5.1); Sodium 136 mmol/L (137-145); Total Bilirubin 0.5 mg/dL (0.2-1.3); Total Protein 8.9 g/dL (6.3-8.2)
[2020-08-20 20:28] LABS: Basophils # (A) 0.1 k/uL (0-0.2); Basophils % (A) 1 %; Eosinophils % (A) 0 %; HCT 33.9 % (34.0-46.0); HGB 10.3 gm/dL (11.4-16.0); Hypochromasia Moderate; Lymphocytes # (A) 3.6 k/uL (1.0-4.8); Lymphocytes % (A) 31 %; MCH 25.1 pg (25.0-35.0); MCHC 30.3 g/dL (31.0-37.0); MCV 82.8 fL (80.0-100.0); Mean Platelet Volume 10.4; Monocytes # (A) 0.6 k/uL (0-1.0); Monocytes % (A) 5 %; Neutrophils # (A) 7.3 k/uL (1.3-7.7); Neutrophils % (A) 62 %; Platelet Count 388 k/uL (150-450); RBC 4.09 m/uL (3.80-5.40); RDW 15.5 % (11.5-15.5); WBC 11.8 k/uL (3.8-10.6)
--- NOTE | 2020-08-20 21:37 | ED ---
Nausea/Vomiting/Diarrhea HPI - General Chief complaint: Nausea/Vomiting/Diarrhea Stated complaint: hyperglycemia Time Seen by Provider: 08/20/20 17:30 Source: patient Mode of arrival: ambulatory Limitations: no limitations - History of Present Illness Initial comments: 45-year-old female past medical history of PE, diabetes who presents to the emergency department with reported nausea, vomiting. Patient is concerned that she is in DKA. States she has not taken her medications for 2 months as her doctor's office closed. She is not insulin dependent and takes oral medications. Reports that her sugars have been reading high at home. She has been so weak that she called an ambulance. Denies any fevers or chills. No cough or chest pain. Denies feeling short of breath. No abdominal pain. No sick contacts. Also reports that she has not taken her blood thinner in approximately 4 days. No previous history of cardiac disease. No alleviating, precipitating or modifying factors - Related Data Home Medications Medication Instructions Recorded Confirmed Baclofen [Lioresal] 10 mg PO HS 03/03/19 08/20/20 Gabapentin 800 mg PO TID 03/03/19 08/20/20 HYDROcodone/APAP 10-325MG [[place] 1 tab PO TID 03/03/19 08/20/20 10-325] Albuterol Inhaler [Ventolin Hfa 2 puff INHALATION RT-QID PRN 08/20/20 08/20/20 Inhaler] Buprenorphine HCl [Belbuca] 150 mcg BUCCAL Q12H 08/20/20 08/20/20 Previous Rx's Medication Instructions Recorded Aspirin 81 mg PO DAILY #30 chew 08/23/20 Atorvastatin [Lipitor] 40 mg PO DAILY #30 tab 08/23/20 Losartan [Cozaar] 25 mg PO DAILY #30 tab 08/23/20 Metoprolol Tartrate [Lopressor] 12.5 mg PO BID #60 tab 08/23/20 Rivaroxaban [Xarelto] 20 mg PO DAILY #30 tab 08/23/20 Rivaroxaban [Xarelto] 20 mg PO W/SUPPER tab 08/23/20 Sulfamethox-Tmp 800-160Mg [Bactrim 1 tab PO Q12HR 5 Days #10 tab 08/23/20 DS 800-160 mg] glipiZIDE [Glucotrol] 5 mg PO DAILY #30 tab 08/23/20 metFORMIN HCL 1,000 mg PO BID #60 tab 08/23/20 Allergies Allergy/AdvReac Type Severity Reaction Status Date / Time morphine Allergy Unknown Verified 08/20/20 21:19 Review of Systems ROS Statement: Those systems with pertinent positive or pertinent negative responses have been documented in the HPI. ROS Other: All systems not noted in ROS Statement are negative. Past Medical History Past Medical History: Diabetes Mellitus, Musculoskeletal Disorder Additional Past Medical History / Comment(s): neuropathy, bulging discs, sciatic nerve pain, anxiety, depression History of Any Multi-Drug Resistant Organisms: None Reported Past Surgical History: Section, Tubal Ligation Additional Past Surgical History / Comment(s): C section x3, back surgery Past Psychological History: Anxiety, Depression Smoking Status: Never smoker Past Alcohol Use History: None Reported Past Drug Use History: Marijuana - Past Family History Mother Family Medical History: Cancer, Diabetes Mellitus, Hypertension Father Family Medical History: Coronary Artery Disease (CAD), CVA/TIA, Hypertension General Exam Limitations: no limitations General appearance: alert, in no apparent distress Head exam: Present: atraumatic, normocephalic, normal inspection Eye exam: Present: normal appearance, PERRL, EOMI. Absent: scleral icterus, conjunctival injection, periorbital swelling ENT exam: Present: normal exam, mucous membranes moist Neck exam: Present: normal inspection. Absent: tenderness, meningismus, lymphadenopathy Respiratory exam: Present: normal lung sounds bilaterally. Absent: respiratory distress, wheezes, rales, rhonchi, stridor Cardiovascular Exam: Present: regular rate, normal rhythm, normal heart sounds. Absent: systolic murmur, diastolic murmur, rubs, gallop, clicks GI/Abdominal exam: Present: soft, normal bowel sounds. Absent: distended, tenderness, guarding, rebound, rigid Extremities exam: Present: normal inspection, full ROM, normal capillary refill. Absent: tenderness, pedal edema, joint swelling, calf tenderness Back exam: Present: normal inspection Neurological exam: Present: alert, oriented X3, CN II-XII intact Psychiatric exam: Present: normal affect, normal mood Skin exam: Present: warm, dry, intact, normal color. Absent: rash Course Vital Signs 08/20/20 08/20/20 08/20/20 17:30 21:05 22:00 Temperature 99.2 F Pulse Rate 100 98 90 Respiratory 20 20 20 Rate Blood Pressure 165/90 168/108 166/101 O2 Sat by Pulse 98 97 98 Oximetry 08/21/20 08/21/20 08/21/20 01:02 03:00 04:00 Temperature Pulse Rate 72 84 81 Respiratory 20 20 20 Rate Blood Pressure 165/92 168/96 137/78 O2 Sat by Pulse 97 97 96 Oximetry 08/21/20 08/21/20 08/21/20 06:00 07:59 13:00 Temperature 98.0 F 98.0 F Pulse Rate 81 65 69 Respiratory 20 16 18 Rate Blood Pressure 182/85 132/87 101/70 O2 Sat by Pulse 98 98 100 Oximetry 08/21/20 08/21/20 16:00 19:40 Temperature 98.9 F Pulse Rate 98 79 Respiratory 20 18 Rate Blood Pressure 136/86 110/71 O2 Sat by Pulse 96 99 Oximetry Procedures - Procedures Initial comment: 2 peripheral guided ultrasounds were placed in the patients left upper extremity Medical Decision Making - Medical Decision Making Upon arrival the patient is placed in room 30. Thorough history and physical exam was performed. Peripheral IV is attempted however unsuccessful. I do place an ultrasound-guided IV. Patient is given a 1 L bolus of normal saline and 4 mg of Zofran. Laboratory studies were conducted. Glucose does return and is 266. No signs of DKA. Troponins elevated at 0.060. Patient is placed on her oral anticogulation. Throughout the patient stay in the emergency department, her IV does go bad. I did recommend replacement with ultrasound-gu ided for which is placed. Patient is currently awaiting a bed on the floor in stable condition. - Lab Data Result diagrams: 08/23/20 08:24 08/23/20 08:24 Lab Results 08/20/20 08/20/20 08/20/20 Range/Units 19:48 19:48 19:48 WBC 11.8 H (3.8-10.6) k/uL RBC 4.09 (3.80-5.40) m/uL Hgb 10.3 L (11.4-16.0) gm/dL Hct 33.9 L (34.0-46.0) % MCV 82.8 (80.0-100.0) fL MCH 25.1 (25.0-35.0) pg MCHC 30.3 L (31.0-37.0) g/dL RDW 15.5 (11.5-15.5) % Plt Count 388 (150-450) k/uL MPV 10.4 Neutrophils % 62 % Lymphocytes % 31 % Monocytes % 5 % Eosinophils % 0 % Basophils % 1 % Neutrophils # 7.3 (1.3-7.7) k/uL Lymphocytes # 3.6 (1.0-4.8) k/uL Monocytes # 0.6 (0-1.0) k/uL Eosinophils # 0.0 (0-0.7) k/uL Basophils # 0.1 (0-0.2) k/uL Hypochromasia Moderate PT (9.0-12.0) sec INR (<1.2) Sodium (137-145) mmol/L Potassium (3.5-5.1) mmol/L Chloride (98-107) mmol/L Carbon Dioxide (22-30) mmol/L Anion Gap mmol/L BUN (7-17) mg/dL Creatinine (0.52-1.04) mg/dL Est GFR (CKD-EPI)AfAm (>60 ml/min/1.73 sqM) Est GFR (CKD-EPI)NonAf (>60 ml/min/1.73 sqM) Glucose (74-99) mg/dL POC Glucose (mg/dL) (75-99) mg/dL POC Glu Security Incident Response Engineer ID Plasma Lactic Acid Naresh 1.4 (0.7-2.0) mmol/L Calcium (8.4-10.2) mg/dL Magnesium (1.6-2.3) mg/dL Total Bilirubin (0.2-1.3) mg/dL AST (14-36) U/L ALT (4-34) U/L Alkaline Phosphatase (38-126) U/L Troponin I 0.060 H* (0.000-0.034) ng/mL Total Protein (6.3-8.2) g/dL Albumin (3.5-5.0) g/dL TSH (0.465-4.680) mIU/L Urine Color Urine Appearance (Clear) Urine pH (5.0-8.0) Ur Specific Eastern (1.001-1.035) Urine Protein (Negative) Urine Glucose (UA) (Negative) Urine Ketones (Negative) Urine Blood (Negative) Urine Nitrite (Negative) Urine Bilirubin (Negative) Urine Urobilinogen (<2.0) mg/dL Ur Leukocyte Esterase (Negative) Urine RBC (0-5) /hpf Urine WBC (0-5) /hpf Ur Squamous Epith Cells (0-4) /hpf Amorphous Sediment (None) /hpf Urine Bacteria (None) /hpf Hyaline Casts (0-2) /lpf Urine Mucus (None) /hpf Acetone, Qual (Negative) Coronavirus (PCR) (Not Detectd) 08/20/20 08/20/20 08/20/20 Range/Units 19:48 21:46 21:46 WBC (3.8-10.6) k/uL RBC (3.80-5.40) m/uL Hgb (11.4-16.0) gm/dL Hct (34.0-46.0) % MCV (80.0-100.0) fL MCH (25.0-35.0) pg MCHC (31.0-37.0) g/dL RDW (11.5-15.5) % Plt Count (150-450) k/uL MPV Neutrophils % % Lymphocytes % % Monocytes % % Eosinophils % % Basophils % % Neutrophils # (1.3-7.7) k/uL Lymphocytes # (1.0-4.8) k/uL Monocytes # (0-1.0) k/uL Eosinophils # (0-0.7) k/uL Basophils # (0-0.2) k/uL Hypochromasia PT 10.9 (9.0-12.0) sec INR 1.0 (<1.2) Sodium 136 L (137-145) mmol/L Potassium 3.9 (3.5-5.1) mmol/L Chloride 99 (98-107) mmol/L Carbon Dioxide 21 L (22-30) mmol/L Anion Gap 16 mmol/L BUN 15 (7-17) mg/dL Creatinine 0.92 (0.52-1.04) mg/dL Est GFR (CKD-EPI)AfAm 87 (>60 ml/min/1.73 sqM) Est GFR (CKD-EPI)NonAf 76 (>60 ml/min/1.73 sqM) Glucose 266 H (74-99) mg/dL POC Glucose (mg/dL) (75-99) mg/dL POC Glu Security Incident Response Engineer ID Plasma Lactic Acid Naresh (0.7-2.0) mmol/L Calcium 10.3 H (8.4-10.2) mg/dL Magnesium 1.7 (1.6-2.3) mg/dL Total Bilirubin 0.5 (0.2-1.3) mg/dL AST 38 H (14-36) U/L ALT 17 (4-34) U/L Alkaline Phosphatase 174 H (38-126) U/L Troponin I (0.000-0.034) ng/mL Total Protein 8.9 H (6.3-8.2) g/dL Albumin 4.6 (3.5-5.0) g/dL TSH 0.546 (0.465-4.680) mIU/L Urine Color Yellow Urine Appearance Cloudy H (Clear) Urine pH 6.0 (5.0-8.0) Ur Specific Eastern 1.027 (1.001-1.035) Urine Protein 2+ H (Negative) Urine Glucose (UA) Negative (Negative) Urine Ketones 3+ H (Negative) Urine Blood Trace H (Negative) Urine Nitrite Negative (Negative) Urine Bilirubin Negative (Negative) Urine Urobilinogen <2.0 (<2.0) mg/dL Ur Leukocyte Esterase Trace H (Negative) Urine RBC 7 H (0-5) /hpf Urine WBC 4 (0-5) /hpf Ur Squamous Epith Cells 6 H (0-4) /hpf Amorphous Sediment Rare H (None) /hpf Urine Bacteria Rare H (None) /hpf Hyaline Casts 23 H (0-2) /lpf Urine Mucus Occasional H (None) /hpf Acetone, Qual Negative (Negative) Coronavirus (PCR) (Not Detectd) 08/20/20 08/20/20 08/21/20 Range/Units 21:50 22:45 02:30 WBC (3.8-10.6) k/uL RBC (3.80-5.40) m/uL Hgb (11.4-16.0) gm/dL Hct (34.0-46.0) % MCV (80.0-100.0) fL MCH (25.0-35.0) pg MCHC (31.0-37.0) g/dL RDW (11.5-15.5) % Plt Count (150-450) k/uL MPV Neutrophils % % Lymphocytes % % Monocytes % % Eosinophils % % Basophils % % Neutrophils # (1.3-7.7) k/uL Lymphocytes # (1.0-4.8) k/uL Monocytes # (0-1.0) k/uL Eosinophils # (0-0.7) k/uL Basophils # (0-0.2) k/uL Hypochromasia PT (9.0-12.0) sec INR (<1.2) Sodium (137-145) mmol/L Potassium (3.5-5.1) mmol/L Chloride (98-107) mmol/L Carbon Dioxide (22-30) mmol/L Anion Gap mmol/L BUN (7-17) mg/dL Creatinine (0.52-1.04) mg/dL Est GFR (CKD-EPI)AfAm (>60 ml/min/1.73 sqM) Est GFR (CKD-EPI)NonAf (>60 ml/min/1.73 sqM) Glucose (74-99) mg/dL POC Glucose (mg/dL) (75-99) mg/dL POC Glu Security Incident Response Engineer ID Plasma Lactic Acid Naresh (0.7-2.0) mmol/L Calcium (8.4-10.2) mg/dL Magnesium (1.6-2.3) mg/dL Total Bilirubin (0.2-1.3) mg/dL AST (14-36) U/L ALT (4-34) U/L Alkaline Phosphatase (38-126) U/L Troponin I 0.056 H* 0.053 H* (0.000-0.034) ng/mL Total Protein (6.3-8.2) g/dL Albumin (3.5-5.0) g/dL TSH (0.465-4.680) mIU/L Urine Color Urine Appearance (Clear) Urine pH (5.0-8.0) Ur Specific [place] (1.001-1.035) Urine Protein (Negative) Urine Glucose (UA) (Negative) Urine Ketones (Negative) Urine Blood (Negative) Urine Nitrite (Negative) Urine Bilirubin (Negative) Urine Urobilinogen (<2.0) mg/dL Ur Leukocyte Esterase (Negative) Urine RBC (0-5) /hpf Urine WBC (0-5) /hpf Ur Squamous Epith Cells (0-4) /hpf Amorphous Sediment (None) /hpf Urine Bacteria (None) /hpf Hyaline Casts (0-2) /lpf Urine Mucus (None) /hpf Acetone, Qual (Negative) Coronavirus (PCR) Not Detected (Not Detectd) 08/21/20 08/21/20 08/21/20 Range/Units 02:30 02:30 07:37 WBC 10.7 H (3.8-10.6) k/uL RBC 3.93 (3.80-5.40) m/uL Hgb 10.4 L (11.4-16.0) gm/dL Hct 31.1 L (34.0-46.0) % MCV 78.9 L (80.0-100.0) fL MCH 26.4 (25.0-35.0) pg MCHC 33.4 (31.0-37.0) g/dL RDW 15.3 (11.5-15.5) % Plt Count 505 H (150-450) k/uL MPV 8.3 Neutrophils % 65 % Lymphocytes % 28 % Monocytes % 4 % Eosinophils % 1 % Basophils % 1 % Neutrophils # 6.9 (1.3-7.7) k/uL Lymphocytes # 3.0 (1.0-4.8) k/uL Monocytes # 0.5 (0-1.0) k/uL Eosinophils # 0.1 (0-0.7) k/uL Basophils # 0.1 (0-0.2) k/uL Hypochromasia PT (9.0-12.0) sec INR (<1.2) Sodium 133 L (137-145) mmol/L Potassium 3.5 (3.5-5.1) mmol/L Chloride 98 (98-107) mmol/L Carbon Dioxide 19 L (22-30) mmol/L Anion Gap 16 mmol/L BUN 14 (7-17) mg/dL Creatinine 0.79 (0.52-1.04) mg/dL Est GFR (CKD-EPI)AfAm >90 (>60 ml/min/1.73 sqM) Est GFR (CKD-EPI)NonAf >90 (>60 ml/min/1.73 sqM) Glucose 283 H (74-99) mg/dL POC Glucose (mg/dL) 264 H (75-99) mg/dL POC Glu Security Incident Response Engineer ID Nell Espinoza Plasma Lactic Acid Naresh (0.7-2.0) mmol/L Calcium 9.9 (8.4-10.2) mg/dL Magnesium (1.6-2.3) mg/dL Total Bilirubin (0.2-1.3) mg/dL AST (14-36) U/L ALT (4-34) U/L Alkaline Phosphatase (38-126) U/L Troponin I (0.000-0.034) ng/mL Total Protein (6.3-8.2) g/dL Albumin (3.5-5.0) g/dL TSH (0.465-4.680) mIU/L Urine Color Urine Appearance (Clear) Urine pH (5.0-8.0) Ur Specific [place] (1.001-1.035) Urine Protein (Negative) Urine Glucose (UA) (Negative) Urine Ketones (Negative) Urine Blood (Negative) Urine Nitrite (Negative) Urine Bilirubin (Negative) Urine Urobilinogen (<2.0) mg/dL Ur Leukocyte Esterase (Negative) Urine RBC (0-5) /hpf Urine WBC (0-5) /hpf Ur Squamous Epith Cells (0-4) /hpf Amorphous Sediment (None) /hpf Urine Bacteria (None) /hpf Hyaline Casts (0-2) /lpf Urine Mucus (None) /hpf Acetone, Qual (Negative) Coronavirus (PCR) (Not Detectd) 08/21/20 Range/Units 13:02 WBC (3.8-10.6) k/uL RBC (3.80-5.40) m/uL Hgb (11.4-16.0) gm/dL Hct (34.0-46.0) % MCV (80.0-100.0) fL MCH (25.0-35.0) pg MCHC (31.0-37.0) g/dL RDW (11.5-15.5) % Plt Count (150-450) k/uL MPV Neutrophils % % Lymphocytes % % Monocytes % % Eosinophils % % Basophils % % Neutrophils # (1.3-7.7) k/uL Lymphocytes # (1.0-4.8) k/uL Monocytes # (0-1.0) k/uL Eosinophils # (0-0.7) k/uL Basophils # (0-0.2) k/uL Hypochromasia PT (9.0-12.0) sec INR (<1.2) Sodium (137-145) mmol/L Potassium (3.5-5.1) mmol/L Chloride (98-107) mmol/L Carbon Dioxide (22-30) mmol/L Anion Gap mmol/L BUN (7-17) mg/dL Creatinine (0.52-1.04) mg/dL Est GFR (CKD-EPI)AfAm (>60 ml/min/1.73 sqM) Est GFR (CKD-EPI)NonAf (>60 ml/min/1.73 sqM) Glucose (74-99) mg/dL POC Glucose (mg/dL) 242 H (75-99) mg/dL POC Glu Security Incident Response Engineer ID Alli, Rissa Plasma Lactic Acid Naresh (0.7-2.0) mmol/L Calcium (8.4-10.2) mg/dL Magnesium (1.6-2.3) mg/dL Total Bilirubin (0.2-1.3) mg/dL AST (14-36) U/L ALT (4-34) U/L Alkaline Phosphatase (38-126) U/L Troponin I (0.000-0.034) ng/mL Total Protein (6.3-8.2) g/dL Albumin (3.5-5.0) g/dL TSH (0.465-4.680) mIU/L Urine Color Urine Appearance (Clear) Urine pH (5.0-8.0) Ur Specific Eastern (1.001-1.035) Urine Protein (Negative) Urine Glucose (UA) (Negative) Urine Ketones (Negative) Urine Blood (Negative) Urine Nitrite (Negative) Urine Bilirubin (Negative) Urine Urobilinogen (<2.0) mg/dL Ur Leukocyte Esterase (Negative) Urine RBC (0-5) /hpf Urine WBC (0-5) /hpf Ur Squamous Epith Cells (0-4) /hpf Amorphous Sediment (None) /hpf Urine Bacteria (None) /hpf Hyaline Casts (0-2) /lpf Urine Mucus (None) /hpf Acetone, Qual (Negative) Coronavirus (PCR) (Not Detectd) - EKG Data EKG Comments: EKG done which is normal sinus rhythm with a ventricular rate of 72. DC interval 164. QRS 86. QTC of 451. No acute ST segment elevations or depressions Disposition Clinical Impression: Nausea & vomiting, NSTEMI (non-ST elevated myocardial infarction) Disposition: ADMITTED IP TO THIS HOSP Condition: Stable Is patient prescribed a controlled substance at d/c from ED?: No Decision to Admit Reason: Admit from EC Decision Date: 08/20/20 Decision Time: 21:40
[2020-08-20] MEDS ORDERED: NALOXONE 0.4 MG/ML 1 ML VIAL IV PRN (21:40)
[2020-08-20] MEDS ORDERED: RIVAROXABAN 20 MG TAB PO SCH (21:45)
[2020-08-20 22:28] LABS: Amorphous Sediment,Urine Rare /hpf; Appearance,Urine Cloudy (Clear); Bacteria,Urine Rare /hpf; Bilirubin,Urine Negative (Negative); Blood,Urine Trace (Negative); Color,Urine Yellow; Glucose,Urine (UA) Negative (Negative); Hyaline Casts,Urine 23 /lpf (0-2); Ketones,Urine 3+ (Negative); Leukocyte Esterase,Urine Trace (Negative); Mucus,Urine Occasional /hpf; Nitrite,Urine Negative (Negative); Protein,Urine 2+ (Negative); RBC,Urine 7 /hpf (0-5); Specific Gravity,Urine 1.027 (1.001-1.035); Squamous Epithelial Cell,Urine 6 /hpf (0-4); Urobilinogen,Urine <2.0 mg/dL (<2.0); WBC,Urine 4 /hpf (0-5)
[2020-08-20 22:34] LABS: Prothrombin Time 10.9 sec (9.0-12.0)
--- NOTE | 2020-08-20 23:27 | XR ---
EXAMINATION TYPE: XR chest 2V DATE OF EXAM: 08/20/2020 COMPARISON: NONE HISTORY: Cough. Chest pain TECHNIQUE: FINDINGS: Heart and mediastinum are normal. Lungs are clear. Diaphragm is normal. Bony thorax appears normal. There are chest leads. IMPRESSION: Normal chest.
[2020-08-21] MEDS: ONDANSETRON 4 MG/2 ML VIAL IVP PRN ×2 (00:07→07:57)
[2020-08-21] MEDS: SODIUM CHLORIDE 0.9% 1,000 ML IV SCH ×4 (00:40→18:42)
[2020-08-21] MEDS: HYDROcodone/APAP 10-325MG 1 EACH TAB PO SCH ×4 (00:56→22:35)
[2020-08-21] MEDS: GABAPENTIN 400 MG CAP PO SCH ×4 (00:56→21:55)
--- NOTE | 2020-08-21 02:12 | P.HPIM ---
History of Present Illness H&P Date: 08/20/20 Chief Complaint: Feeling tired and weak no access to her home medications 45-year-old female with diabetes mellitus on by mouth medications, recent history of PE on Xarelto Patient comes in due to feeling fatigued and sick was repeated nausea and vomiting she was concerned because of blood sugar was consistently high and she thought that she has DKA. She has lost follow-up to her primary care physician and has not got any refill on his medication for 2 months and she hasn't taken any Xarelto for about 4 days she had a recent history of PE about a year ago in she claims to have a history of venous thromboembolism in the past. Patient is complaining of epigastric abdominal discomfort with repeated nausea and vomiting denies any hematemesis or coffee-ground vomiting denies any GI bleeding denies any diarrhea denies any fevers or chills denies any upper respiratory infection symptoms denies any dysuria. However her blood sugar consistently was high at home and with her repeated nausea and vomiting she thought she has DKA for which she came to hospital for evaluation. In the ED chest x-ray was unremarkable blood work overall unremarkable except for mild anemia. Covid testing was negative Patient was also found to have elevated troponin however she denies any chest pain, EKG showed normal sinus rhythm Review of Systems Pertinent positives as noted in HPI. All other systems were reviewed and are negative Past Medical History Past Medical History: Diabetes Mellitus, Musculoskeletal Disorder Additional Past Medical History / Comment(s): neuropathy, bulging discs, sciatic nerve pain, anxiety, depression History of Any Multi-Drug Resistant Organisms: None Reported Past Surgical History: Section, Tubal Ligation Additional Past Surgical History / Comment(s): C section x3, back surgery Past Psychological History: Anxiety, Depression Smoking Status: Never smoker Past Alcohol Use History: None Reported Past Drug Use History: Marijuana - Past Family History Mother Family Medical History: Cancer, Diabetes Mellitus, Hypertension Father Family Medical History: Coronary Artery Disease (CAD), CVA/TIA, Hypertension Medications and Allergies Home Medications Medication Instructions Recorded Confirmed Type Baclofen [Lioresal] 10 mg PO HS 03/03/19 08/20/20 History Gabapentin 800 mg PO TID 03/03/19 08/20/20 History HYDROcodone/APAP 10-325MG [[place] 1 tab PO TID 03/03/19 08/20/20 History 10-325] metFORMIN HCL 1,000 mg PO BID 03/03/19 08/20/20 History Albuterol Inhaler [Ventolin Hfa 2 puff INHALATION RT-QID PRN 08/20/20 08/20/20 History Inhaler] Buprenorphine HCl [Belbuca] 150 mcg BUCCAL Q12H 08/20/20 08/20/20 History Rivaroxaban [Xarelto] 20 mg PO DAILY 08/20/20 08/20/20 History glipiZIDE [Glucotrol] 5 mg PO DAILY 08/20/20 08/20/20 History Allergies Allergy/AdvReac Type Severity Reaction Status Date / Time morphine Allergy Unknown Verified 08/20/20 21:19 Physical Exam Vitals: Vital Signs Temp Pulse Resp BP Pulse Ox 08/20/20 22:00 90 20 166/101 98 08/20/20 21:05 98 20 168/108 97 08/20/20 17:30 99.2 F 100 20 165/90 98 Intake and Output 08/20/20 08/20/20 08/21/20 14:59 22:59 06:59 Other: Weight 131.542 kg Constitutional: No acute distress, conversant, pleasant Eyes: Anicteric sclerae, moist conjunctiva, Pupils equal round reactive to light ENMT: NC/AT Oropharynx clear, no erythema, or exudates Neck: Supple, FROM, no masses, or JVD No carotid bruits No thyromegaly Lungs: Clear to auscultation Clear to percussion Normal respiratory effort, no accessory muscle use Cardiovascular: Heart regular in rate and rhythm, No murmurs, gallops, or rubs No peripheral edema Abdominal: Soft Nontender, no guarding, rebound or rigidity Abdomen moving with respiration Normoactive bowel sounds No hepatomegaly, No splenomegaly No palpable mass No abdominal wall hernia noted Skin: Normal temperature, tone, texture, turgor No induration No subcutaneous nodules No rash, lesions No ulcers Extremities: No digital cyanosis No clubbing Pedal pulses intact and symmetrical Radial pulses intact and symmetrical No calf tenderness Psychiatric: Alert and oriented to person, place and time Appropriate affect fair judgement Neuro Muscles Strength 5/5 in all 4 extremities Sensation to light touch grossly present throughout Cranial nerves II-XII grossly intact No focal sensory deficits Lymphatics: no palpable cervical or supraclavicular , or inguinal lymph nodes Results CBC & Chem 7: 08/20/20 19:48 08/20/20 19:48 Labs: Abnormal Lab Results - Last 24 Hours (Table) 08/20/20 08/20/20 08/20/20 Range/Units 19:48 19:48 19:48 WBC 11.8 H (3.8-10.6) k/uL Hgb 10.3 L (11.4-16.0) gm/dL Hct 33.9 L (34.0-46.0) % MCHC 30.3 L (31.0-37.0) g/dL Sodium 136 L (137-145) mmol/L Carbon Dioxide 21 L (22-30) mmol/L Glucose 266 H (74-99) mg/dL Calcium 10.3 H (8.4-10.2) mg/dL AST 38 H (14-36) U/L Alkaline Phosphatase 174 H (38-126) U/L Troponin I 0.060 H* (0.000-0.034) ng/mL Total Protein 8.9 H (6.3-8.2) g/dL Urine Appearance (Clear) Urine Protein (Negative) Urine Ketones (Negative) Urine Blood (Negative) Ur Leukocyte Esterase (Negative) Urine RBC (0-5) /hpf Ur Squamous Epith Cells (0-4) /hpf Amorphous Sediment (None) /hpf Urine Bacteria (None) /hpf Hyaline Casts (0-2) /lpf Urine Mucus (None) /hpf 08/20/20 Range/Units 21:46 WBC (3.8-10.6) k/uL Hgb (11.4-16.0) gm/dL Hct (34.0-46.0) % MCHC (31.0-37.0) g/dL Sodium (137-145) mmol/L Carbon Dioxide (22-30) mmol/L Glucose (74-99) mg/dL Calcium (8.4-10.2) mg/dL AST (14-36) U/L Alkaline Phosphatase (38-126) U/L Troponin I (0.000-0.034) ng/mL Total Protein (6.3-8.2) g/dL Urine Appearance Cloudy H (Clear) Urine Protein 2+ H (Negative) Urine Ketones 3+ H (Negative) Urine Blood Trace H (Negative) Ur Leukocyte Esterase Trace H (Negative) Urine RBC 7 H (0-5) /hpf Ur Squamous Epith Cells 6 H (0-4) /hpf Amorphous Sediment Rare H (None) /hpf Urine Bacteria Rare H (None) /hpf Hyaline Casts 23 H (0-2) /lpf Urine Mucus Occasional H (None) /hpf Assessment and Plan Assessment: Intractable nausea and vomiting with epigastric discomfort IV fluid hydration Symptomatic control PPI twice a day Patient denies any bleeding IV fluid hydration normal saline Elevated troponin rule out acute coronary syndrome Cardiac monitoring Trend troponins Patient denies any chest pain Cardiology consult 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
[2020-08-21 02:44] LABS: Basophils # (A) 0.1 k/uL (0-0.2); Basophils % (A) 1 %; Eosinophils # (A) 0.1 k/uL (0-0.7); Eosinophils % (A) 1 %; HCT 31.1 % (34.0-46.0); HGB 10.4 gm/dL (11.4-16.0); Lymphocytes % (A) 28 %; MCH 26.4 pg (25.0-35.0); MCHC 33.4 g/dL (31.0-37.0); MCV 78.9 fL (80.0-100.0); Mean Platelet Volume 8.3; Monocytes # (A) 0.5 k/uL (0-1.0); Monocytes % (A) 4 %; Neutrophils # (A) 6.9 k/uL (1.3-7.7); Neutrophils % (A) 65 %; Platelet Count 505 k/uL (150-450); RBC 3.93 m/uL (3.80-5.40); RDW 15.3 % (11.5-15.5); WBC 10.7 k/uL (3.8-10.6)
[2020-08-21 02:59] LABS: African American GFR (CKD) >90 (>60 ml/min/1.73 sqM); Anion Gap 16 mmol/L; Blood Urea Nitrogen 14 mg/dL (7-17); Calcium 9.9 mg/dL (8.4-10.2); Carbon Dioxide 19 mmol/L (22-30); Chloride 98 mmol/L (98-107); Glucose 283 mg/dL (74-99); Non-African American GFR(CKD) >90 (>60 ml/min/1.73 sqM); Potassium 3.5 mmol/L (3.5-5.1); Sodium 133 mmol/L (137-145)
[2020-08-21] MEDS: PANTOPRAZOLE 40 MG TABLET PO SCH ×3 (06:45→18:41)
[2020-08-21 07:48] LABS: Glucose,Whole Blood 264 mg/dL (75-99)
[2020-08-21] MEDS: INSULIN ASPART (NovoLOG) 100 UNIT/ML VIAL SQ SCH ×4 (07:53→21:27)
[2020-08-21] MEDS ORDERED: SODIUM CHLORIDE 0.9% 1,000 ML in EMPTY BAG 1 BAG IV ONE (10:14)
[2020-08-21] MEDS ORDERED: NITROGLYCERIN SL TABS 0.4 MG TAB SUBLINGUAL PRN (10:14)
[2020-08-21] MEDS ORDERED: ASPIRIN 325 MG TAB PO STA (10:14)
[2020-08-21] MEDS ORDERED: ALPRAZolam 0.5 MG TAB PO PRN (10:14)
[2020-08-21] MEDS ORDERED: ALPRAZolam 0.25 MG TAB PO PRN (10:14)
[2020-08-21] MEDS ORDERED: ATORVASTATIN 80 MG TAB PO STA (10:14)
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
[2020-08-21] MEDS: lisinopriL 5 MG TAB PO SCH ×2 (11:12)
[2020-08-21 13:05] LABS: Glucose,Whole Blood 242 mg/dL (75-99)
--- NOTE | 2020-08-21 16:00 | P.PN ---
Subjective Progress Note Date: 08/21/20 Feels okay, no chest pain no abdominal pain, no nausea or vomiting. Objective - Vital Signs Vital signs: Vital Signs Temp 98.0 F 08/21/20 13:00 Pulse 69 08/21/20 13:00 Resp 18 08/21/20 13:00 BP 101/70 08/21/20 13:00 Pulse Ox 100 08/21/20 13:00 Intake & Output 08/20/20 08/21/20 08/21/20 18:59 06:59 18:59 Weight 131.542 kg 131.542 kg - Exam Constitutional: No acute distress, conversant, pleasant Eyes: Anicteric sclerae, moist conjunctiva, no lid-lag, PERRLA ENMT: NC/AT,Oropharynx clear, no erythema, exudates Neck:Supple, FROM, no masses Lungs: Clear to auscultation Cardiovascular: Heart regular in rate and rhythm, No murmurs, gallops, or rubs no peripheral edema Abdominal: Soft Nontender, non distended Extremities:No digital cyanosis No clubbing Psychiatric: Alert and oriented to person, place and time, Appropriate affect Intact judgement Neuro: Muscles Strength 5/5 in all 4 extremities, Sensation to light touch grossly present throughout, Cranial nerves II-XII grossly intact. No focal sensory deficits - Labs CBC & Chem 7: 08/21/20 02:30 08/21/20 02:30 Labs: Abnormal Lab Results - Last 24 Hours (Table) 08/20/20 08/20/20 08/20/20 Range/Units 19:48 19:48 19:48 WBC 11.8 H (3.8-10.6) k/uL Hgb 10.3 L (11.4-16.0) gm/dL Hct 33.9 L (34.0-46.0) % MCV (80.0-100.0) fL MCHC 30.3 L (31.0-37.0) g/dL Plt Count (150-450) k/uL Sodium 136 L (137-145) mmol/L Carbon Dioxide 21 L (22-30) mmol/L Glucose 266 H (74-99) mg/dL POC Glucose (mg/dL) (75-99) mg/dL Calcium 10.3 H (8.4-10.2) mg/dL AST 38 H (14-36) U/L Alkaline Phosphatase 174 H (38-126) U/L Troponin I 0.060 H* (0.000-0.034) ng/mL Total Protein 8.9 H (6.3-8.2) g/dL Urine Appearance (Clear) Urine Protein (Negative) Urine Ketones (Negative) Urine Blood (Negative) Ur Leukocyte Esterase (Negative) Urine RBC (0-5) /hpf Ur Squamous Epith Cells (0-4) /hpf Amorphous Sediment (None) /hpf Urine Bacteria (None) /hpf Hyaline Casts (0-2) /lpf Urine Mucus (None) /hpf 08/20/20 08/20/20 08/21/20 Range/Units 21:46 22:45 02:30 WBC (3.8-10.6) k/uL Hgb (11.4-16.0) gm/dL Hct (34.0-46.0) % MCV (80.0-100.0) fL MCHC (31.0-37.0) g/dL Plt Count (150-450) k/uL Sodium (137-145) mmol/L Carbon Dioxide (22-30) mmol/L Glucose (74-99) mg/dL POC Glucose (mg/dL) (75-99) mg/dL Calcium (8.4-10.2) mg/dL AST (14-36) U/L Alkaline Phosphatase (38-126) U/L Troponin I 0.056 H* 0.053 H* (0.000-0.034) ng/mL Total Protein (6.3-8.2) g/dL Urine Appearance Cloudy H (Clear) Urine Protein 2+ H (Negative) Urine Ketones 3+ H (Negative) Urine Blood Trace H (Negative) Ur Leukocyte Esterase Trace H (Negative) Urine RBC 7 H (0-5) /hpf Ur Squamous Epith Cells 6 H (0-4) /hpf Amorphous Sediment Rare H (None) /hpf Urine Bacteria Rare H (None) /hpf Hyaline Casts 23 H (0-2) /lpf Urine Mucus Occasional H (None) /hpf 08/21/20 08/21/20 08/21/20 Range/Units 02:30 02:30 07:37 WBC 10.7 H (3.8-10.6) k/uL Hgb 10.4 L (11.4-16.0) gm/dL Hct 31.1 L (34.0-46.0) % MCV 78.9 L (80.0-100.0) fL MCHC (31.0-37.0) g/dL Plt Count 505 H (150-450) k/uL Sodium 133 L (137-145) mmol/L Carbon Dioxide 19 L (22-30) mmol/L Glucose 283 H (74-99) mg/dL POC Glucose (mg/dL) 264 H (75-99) mg/dL Calcium (8.4-10.2) mg/dL AST (14-36) U/L Alkaline Phosphatase (38-126) U/L Troponin I (0.000-0.034) ng/mL Total Protein (6.3-8.2) g/dL Urine Appearance (Clear) Urine Protein (Negative) Urine Ketones (Negative) Urine Blood (Negative) Ur Leukocyte Esterase (Negative) Urine RBC (0-5) /hpf Ur Squamous Epith Cells (0-4) /hpf Amorphous Sediment (None) /hpf Urine Bacteria (None) /hpf Hyaline Casts (0-2) /lpf Urine Mucus (None) /hpf 08/21/20 Range/Units 13:02 WBC (3.8-10.6) k/uL Hgb (11.4-16.0) gm/dL Hct (34.0-46.0) % MCV (80.0-100.0) fL MCHC (31.0-37.0) g/dL Plt Count (150-450) k/uL Sodium (137-145) mmol/L Carbon Dioxide (22-30) mmol/L Glucose (74-99) mg/dL POC Glucose (mg/dL) 242 H (75-99) mg/dL Calcium (8.4-10.2) mg/dL AST (14-36) U/L Alkaline Phosphatase (38-126) U/L Troponin I (0.000-0.034) ng/mL Total Protein (6.3-8.2) g/dL Urine Appearance (Clear) Urine Protein (Negative) Urine Ketones (Negative) Urine Blood (Negative) Ur Leukocyte Esterase (Negative) Urine RBC (0-5) /hpf Ur Squamous Epith Cells (0-4) /hpf Amorphous Sediment (None) /hpf Urine Bacteria (None) /hpf Hyaline Casts (0-2) /lpf Urine Mucus (None) /hpf Assessment and Plan Plan: Intractable nausea and vomiting with epigastric discomfort IV fluids PPI twice a day IV fluids resolved Elevated troponin rule out acute coronary syndrome Trend troponins Patient denies any chest pain Cardiology consult, input appreciated ECHO pending Recurrent history of venous thromboembolism with recent history of PE 1 year ago Xarelto on hold , continue heparin drip Diabetes mellitus on oral hypoglycemic agents, with medical noncompliance continue Insulin sliding scale Peripheral neuropathy gabapentin CODE STATUS: Full code DVT prophylaxis: On Xarelto Discussed with: Patient Anticipated discharge place: Home in 1-2 days
--- NOTE | 2020-08-21 17:00 | ECHOF ---
Referral Reason:shortness of breath, elevated troponin MEASUREMENTS -------- HEIGHT: 167.6 cm WEIGHT: 131.5 kg BP: IVSd: 1.3 cm (0.6 - 1.1) LVIDd: 3.1 cm (3.9 - 5.3) LVPWd: 1.2 cm (0.6 - 1.1) EDV(Teich): 39 ml IVSs: 1.8 cm LVIDs: 2.2 cm LVPWs: 1.8 cm %IVS Thck: 37 % ESV(Teich): 17 ml EF(Teich): 57 % %FS: 29 % SV(Teich): 23 ml LA Diam: 3.6 cm (2.7 - 3.8) RVIDd: 3.7 cm (< 3.3) Ao Diam: 3.0 cm (2.0 - 3.7) AV Cusp: 1.7 cm (1.5 - 2.6) EPSS: 0.6 cm MV E Edin: 0.72 m/s MV DecT: 323 ms MV Dec Floyd: 2.2 m/s MV A Edin: 0.91 m/s MV E/A Ratio: 0.79 MV PHT: 94 ms AV Vmax: 1.34 m/s AV maxP.14 mmHg MV EF SLOPE: 30.48 mm/s (70 - 150) MV EXCURSION: 14.40 mm (> 18.000) FINDINGS -------- Sinus rhythm. This was a technically good study. The left ventricular size is normal. There is mild concentric left ventricular hypertrophy. Overa ll left ventricular systolic function is normal with, an EF between 60 - 65 %. The right ventricle is mildly enlarged. The left atrial size is normal. The right atrium is normal in size. Interatrial and interventricular septum intact. There is mild aortic valve sclerosis. Mild mitral annular calcification present. The tricuspid valve appears structurally normal. There is no pulmonic regurgitation present. The aortic root size is normal. Normal inferior vena cava with normal inspiratory collapse consistent with estimated right atrial pre ssure of 5 mmHg. There is no pericardial effusion. CONCLUSIONS -------- 1. The left ventricular size is normal. 2. There is mild concentric left ventricular hypertrophy. 3. Overall left ventricular systolic function is normal with, an EF between 60 - 65 %. 4. The right ventricle is mildly enlarged. 5. There is mild aortic valve sclerosis. 6. Mild mitral annular calcification present. 7. There is no pericardial effusion. JOURNALISM INSTRUCTOR: Margaux Delcid RDCS
[2020-08-21 18:49] LABS: Glucose,Whole Blood 230 mg/dL (75-99)
[2020-08-21] MEDS: METOPROLOL TARTRATE 25 MG TAB PO SCH (21:37)
[2020-08-22 06:15] LABS: Glucose,Whole Blood 300 mg/dL (75-99)
[2020-08-22] MEDS: PANTOPRAZOLE 40 MG TABLET PO SCH ×2 (06:18→17:18)
[2020-08-22] MEDS: INSULIN ASPART (NovoLOG) 100 UNIT/ML VIAL SQ SCH ×4 (06:19→21:33)
[2020-08-22] MEDS: SODIUM CHLORIDE 0.9% 1,000 ML IV SCH ×2 (06:21→17:27)
[2020-08-22] MEDS ORDERED: HEPARIN SODIUM,PORCINE 2,500 UNIT in SODIUM CHLORIDE 0.9% 250 ML IRRIGATION PRN (07:00)
[2020-08-22] MEDS ORDERED: HEPARIN SODIUM,PORCINE 10,000 UNIT in SODIUM CHLORIDE 0.9% 1,000 ML IRRIGATION PRN (07:00)
[2020-08-22 08:02] LABS: Basophils # (A) 0.1 k/uL (0-0.2); Basophils % (A) 1 %; Eosinophils # (A) 0.1 k/uL (0-0.7); Eosinophils % (A) 1 %; Hypochromasia Slight; Lymphocytes # (A) 3.5 k/uL (1.0-4.8); Lymphocytes % (A) 45 %; MCHC 32.4 g/dL (31.0-37.0); MCV 80.1 fL (80.0-100.0); Mean Platelet Volume 8.6; Monocytes # (A) 0.4 k/uL (0-1.0); Monocytes % (A) 5 %; Neutrophils # (A) 3.6 k/uL (1.3-7.7); Neutrophils % (A) 46 %; Platelet Count 470 k/uL (150-450); RBC 4.24 m/uL (3.80-5.40); RDW 14.9 % (11.5-15.5); WBC 7.8 k/uL (3.8-10.6)
[2020-08-22 08:26] LABS: ALT 18 U/L (4-34); AST 29 U/L (14-36); African American GFR (CKD) >90 (>60 ml/min/1.73 sqM); Albumin 4.3 g/dL (3.5-5.0); Alkaline Phosphatase 164 U/L (38-126); Anion Gap 12 mmol/L; Blood Urea Nitrogen 9 mg/dL (7-17); Carbon Dioxide 26 mmol/L (22-30); Chloride 97 mmol/L (98-107); Glucose 282 mg/dL (74-99); Non-African American GFR(CKD) 89 (>60 ml/min/1.73 sqM); Potassium 4.4 mmol/L (3.5-5.1); Sodium 135 mmol/L (137-145); Total Bilirubin 0.7 mg/dL (0.2-1.3); Total Protein 8.5 g/dL (6.3-8.2)
[2020-08-22] MEDS: ALBUTEROL HFA INHALER INHALATION PRN ×4 (08:37→20:32)
[2020-08-22] MEDS: GABAPENTIN 400 MG CAP PO SCH ×3 (08:40→21:33)
[2020-08-22] MEDS: ATORVASTATIN 40 MG TAB PO SCH (08:40)
[2020-08-22] MEDS: HYDROcodone/APAP 10-325MG 1 EACH TAB PO SCH ×3 (08:41→21:32)
[2020-08-22] MEDS: METOPROLOL TARTRATE 25 MG TAB PO SCH ×2 (08:41→21:32)
[2020-08-22] MEDS: lisinopriL 5 MG TAB PO SCH ×2 (08:41→08:48)
[2020-08-22] MEDS: ASPIRIN 81 MG PO SCH (08:41)
[2020-08-22] MEDS ORDERED: VERAPAMIL 2.5 MG/ML 2 ML AMP ONE (09:19)
[2020-08-22] MEDS ORDERED: LIDOCAINE 1% INJ 10MG/ML (20 ML MDV) ONE (09:19)
[2020-08-22] MEDS ORDERED: IV FLUID CONTINUATION 1,000 ML IV ONE (09:40)
[2020-08-22] MEDS ORDERED: fentaNYL (PF) 50 MCG/ML 2 ML AMP ONE (09:53)
[2020-08-22] MEDS ORDERED: LIDOCAINE 1% INJ 10MG/ML (20 ML MDV) SQ ONE (10:00)
[2020-08-22] MEDS ORDERED: fentaNYL (PF) 50 MCG/ML 2 ML AMP IV ONE (10:00)
[2020-08-22] MEDS: MIDAZOLAM 2 MG/2 ML VIAL IV ONE ×2 (10:00→10:14)
[2020-08-22] MEDS ORDERED: HEPARIN SODIUM 1,000 UN/ML (10ML VL) ONE (10:10)
[2020-08-22] MEDS: VERAPAMIL SYRINGE (5 MG/10 ML) INTRAARTER ONE ×2 (10:10→10:14)
[2020-08-22] MEDS ORDERED: HEPARIN SODIUM 1,000 UN/ML (10ML VL) IV ONE (10:18)
[2020-08-22] MEDS ORDERED: IOPAMIDOL-370 125ML BTL INJ ONE (10:19)
[2020-08-22] MEDS ORDERED: RX INFO: IV CONTRAST WAS GIVEN 1 EACH MISC MISCELLANE PRN (10:26)
[2020-08-22] MEDS ORDERED: SODIUM CHLORIDE 0.9% 1,000 ML IV SCH (10:30)
--- NOTE | 2020-08-22 11:11 | CC ---
CARDIAC CATHETERIZATION REPORT Mrs. Her is a 45-year-old female with history of chronic tobacco use, history of diabetes, prior history of pulmonary embolism, who presented with symptoms of abdominal pain, nausea and mild troponin elevation with some vague discomfort in the chest. Because of her symptoms and her risk factors, recommendation was made regarding cardiac catheterization. The procedure as well as the risks and the complications were discussed with the patient who is in full understanding and agreement. PROCEDURE: Patient was brought to the dock or pier laborer in a fasting semi-sedated state after receiving fentanyl and Benadryl and achieving moderate conscious sedated state. Using Xylocaine anesthesia and Seldinger technique, a 6-Lux[place]bourgish sheath was introduced in the right radial artery. Selective right and left coronary angiography performed using 5-Lux[place]bourgish 3.5 bend right and left Kelly catheter. Multiple views of the coronary artery including hemiaxial views were obtained. Following that, catheter and sheath were removed. Hemostasis was obtained with deployment of a TR band. There was no immediate complication. Patient was returned to her room in stable condition. Of note, the patient had significant vasospasm during the procedure. She received a total of 5000 units of intravenous heparin as well as intra-arterial verapamil. FINDINGS: LEFT MAIN: This is a short size vessel, trifurcating into left circumflex, left anterior descending artery and ramus intermedius. Left main coronary artery has no evidence of high-grade stenosis. LEFT ANTERIOR DESCENDING ARTERY: This is a large-sized vessel reaching to the apex with a wraparound apex segment giving rise to small diagonal branch proximally. The left circumflex as well as branches have no evidence of obstructive coronary artery disease. RAMUS INTERMEDIUS: This is a large-sized vessel reaching to the apical lateral wall. The ramus intermedius has no evidence of high-grade stenosis. LEFT CIRCUMFLEX: This is a small nondominant vessel that has no evidence of high-grade stenosis. RIGHT CORONARY ARTERY: This is a dominant vessel moderate in caliber bifurcating distally in PDA and posterolateral segment and branches. The proximal segment of the RCA has an eccentric 40% plaque. The rest of the vessel has no high-grade stenosis. LEFT VENTRICULOGRAM: The left ventriculogram was not performed. CONCLUSION: 1. Mild to moderate disease in the RCA. 2. Normal left coronary system. RECOMMENDATION: At this time, I will continue medical therapy with aggressive coronary risk modifications that have been initiated. The importance of smoking cessation was discussed with the patient who is in full understanding and agreement. Duration of sedation is 20 minutes. MMODL / IJN: [id number] /
[2020-08-22 11:47] LABS: Glucose,Whole Blood 150 mg/dL (75-99)
--- NOTE | 2020-08-22 13:02 | P.PN ---
Subjective Progress Note Date: 08/22/20 Feels okay, no chest pain no abdominal pain, no nausea or vomiting. Status post cardiac catheterization, no chest pain no abdominal pain Objective - Vital Signs Vital signs: Vital Signs Temp 98.5 F 08/22/20 04:00 Pulse 63 08/22/20 04:00 Resp 18 08/22/20 04:00 BP 115/80 08/22/20 04:00 Pulse Ox 97 08/22/20 04:00 Intake & Output 08/21/20 08/22/20 08/22/20 18:59 06:59 18:59 Intake Total 75 Balance 75 Weight 131.542 kg 108.1 kg Intake: IV 75 Other: Voiding Method Toilet # Voids 1 - Exam Constitutional: No acute distress, conversant, pleasant Eyes: Anicteric sclerae, moist conjunctiva, no lid-lag, PERRLA ENMT: NC/AT,Oropharynx clear, no erythema, exudates Neck:Supple, FROM, no masses Lungs: Clear to auscultation Cardiovascular: Heart regular in rate and rhythm, No murmurs, gallops, or rubs no peripheral edema Abdominal: Soft Nontender, non distended Extremities:No digital cyanosis No clubbing Psychiatric: Alert and oriented to person, place and time, Appropriate affect Intact judgement Neuro: Muscles Strength 5/5 in all 4 extremities, Sensation to light touch grossly present throughout, Cranial nerves II-XII grossly intact. No focal sensory deficits - Labs CBC & Chem 7: 08/22/20 05:57 08/22/20 05:57 Labs: Abnormal Lab Results - Last 24 Hours (Table) 08/21/20 08/21/20 08/22/20 Range/Units 13:02 18:47 05:57 Hgb 11.0 L (11.4-16.0) gm/dL Plt Count 470 H (150-450) k/uL Sodium (137-145) mmol/L Chloride (98-107) mmol/L Glucose (74-99) mg/dL POC Glucose (mg/dL) 242 H 230 H (75-99) mg/dL Alkaline Phosphatase (38-126) U/L Total Protein (6.3-8.2) g/dL 08/22/20 08/22/20 08/22/20 Range/Units 05:57 06:14 11:45 Hgb (11.4-16.0) gm/dL Plt Count (150-450) k/uL Sodium 135 L (137-145) mmol/L Chloride 97 L (98-107) mmol/L Glucose 282 H (74-99) mg/dL POC Glucose (mg/dL) 300 H 150 H (75-99) mg/dL Alkaline Phosphatase 164 H (38-126) U/L Total Protein 8.5 H (6.3-8.2) g/dL Assessment and Plan Plan: Intractable nausea and vomiting with epigastric discomfort IV fluids PPI twice a day IV fluids resolved Elevated troponin rule out acute coronary syndrome Trend troponins Patient denies any chest pain Cardiology consult, input appreciated ECHO EF 60-65% Recurrent history of venous thromboembolism with recent history of PE 1 year ago Particularly support cardiology, Xarelto was on hold and was on heparin drip, now on Xarelto, discontinue heparin Diabetes mellitus on oral hypoglycemic agents, with medical noncompliance continue Insulin sliding scale Peripheral neuropathy gabapentin CODE STATUS: Full code DVT prophylaxis: On Xarelto Discussed with: Patient Anticipated discharge place: Home likely tomorrow
[2020-08-22 13:26] VITALS: BMI 38.5
[2020-08-22 16:52] LABS: Glucose,Whole Blood 259 mg/dL (75-99)
[2020-08-22] MEDS ORDERED: RIVAROXABAN 20 MG TAB PO SCH (17:30)
[2020-08-22 20:11] LABS: Glucose,Whole Blood 135 mg/dL (75-99)
[2020-08-23 06:06] LABS: Glucose,Whole Blood 271 mg/dL (75-99)
[2020-08-23] MEDS: PANTOPRAZOLE 40 MG TABLET PO SCH (06:29)
[2020-08-23] MEDS: INSULIN ASPART (NovoLOG) 100 UNIT/ML VIAL SQ SCH (06:29)
[2020-08-23] MEDS: ALBUTEROL HFA INHALER INHALATION PRN (07:46)
--- NOTE | 2020-08-23 08:28 | P.DS ---
Providers Date of admission: 08/21/20 13:15 Expected date of discharge: 08/23/20 Attending physician: Anabel Doshi MD Consults: 08/20/20 21:41 Consult Physician Urgent Consulting Provider: [facility] Consult Reason/Comments: NSTEMI Do you want consulting provider notified?: Yes Primary care physician: Stated None Hospital Course: HPI: Chief Complaint: Feeling tired and weak no access to her home medications 45-year-old female with diabetes mellitus on by mouth medications, recent history of PE on Xarelto Patient comes in due to feeling fatigued and sick was repeated nausea and vomiting she was concerned because of blood sugar was consistently high and she thought that she has DKA. She has lost follow-up to her primary care physician and has not got any refill on his medication for 2 months and she hasn't taken any Xarelto for about 4 days she had a recent history of PE about a year ago in she claims to have a history of venous thromboembolism in the past. Patient is complaining of epigastric abdominal discomfort with repeated nausea and vomiting denies any hematemesis or coffee-ground vomiting denies any GI bleeding denies any diarrhea denies any fevers or chills denies any upper respiratory infection symptoms denies any dysuria. However her blood sugar consistently was high at home and with her repeated nausea and vomiting she thought she has DKA for which she came to hospital for evaluation. In the ED chest x-ray was unremarkable blood work overall unremarkable except for mild anemia. Covid testing was negative Patient was also found to have elevated troponin however she denies any chest pain, EKG showed normal sinus rhythm Hospital course and treatment patient was admitted to the hospital with nausea and vomiting. Patient history of PE and DVT but has not taken her Xarelto secondary. She was found to have minimal elevation in troponin, she was evaluated by cardiology. She underwent a cardiac catheterization with mild disease. No intervention. She had a 2-D echo ejection fraction 60-65%. No chest pain. No shortness of breath. She remained hemodynamically stable. Medications adjusted including adding aspirin and beta blockers statin and lisinopril. Symptoms resolved, she was evaluated by cardiology and cleared for discharge. She'll be discharged home with cardiology and PCP follow-up. Patient Condition at Discharge: Stable Plan - Discharge Summary Discharge Rx Participant: No New Discharge Prescriptions: New Atorvastatin [Lipitor] 40 mg PO DAILY #30 tab Metoprolol Tartrate [Lopressor] 12.5 mg PO BID #60 tab Aspirin 81 mg PO DAILY #30 chew Rivaroxaban [Xarelto] 20 mg PO W/SUPPER tab lisinopriL [Zestril] 5 mg PO DAILY #30 tab Continue metFORMIN HCL 1,000 mg PO BID HYDROcodone/APAP 10-325MG [[place] 10-325] 1 tab PO TID Gabapentin 800 mg PO TID Baclofen [Lioresal] 10 mg PO HS Buprenorphine HCl [Belbuca] 150 mcg BUCCAL Q12H glipiZIDE [Glucotrol] 5 mg PO DAILY Albuterol Inhaler [Ventolin Hfa Inhaler] 2 puff INHALATION RT-QID PRN PRN Reason: Shortness Of Breath Rivaroxaban [Xarelto] 20 mg PO DAILY #30 tab Discharge Medication List Baclofen [Lioresal] 10 mg PO HS 03/03/19 [History] Gabapentin 800 mg PO TID 03/03/19 [History] HYDROcodone/APAP 10-325MG [[place] 10-325] 1 tab PO TID 03/03/19 [History] metFORMIN HCL 1,000 mg PO BID 03/03/19 [History] Albuterol Inhaler [Ventolin Hfa Inhaler] 2 puff INHALATION RT-QID PRN 08/20/20 [History] Buprenorphine HCl [Belbuca] 150 mcg BUCCAL Q12H 08/20/20 [History] glipiZIDE [Glucotrol] 5 mg PO DAILY 08/20/20 [History] Aspirin 81 mg PO DAILY #30 chew 08/23/20 [Rx] Atorvastatin [Lipitor] 40 mg PO DAILY #30 tab 08/23/20 [Rx] Metoprolol Tartrate [Lopressor] 12.5 mg PO BID #60 tab 08/23/20 [Rx] Rivaroxaban [Xarelto] 20 mg PO DAILY #30 tab 08/23/20 [Rx] Rivaroxaban [Xarelto] 20 mg PO W/SUPPER tab 08/23/20 [Rx] lisinopriL [Zestril] 5 mg PO DAILY #30 tab 08/23/20 [Rx] Follow up Appointment(s)/Referral(s): Manda Winn MD [STAFF PHYSICIAN] - 1 Week None,Stated [Primary Care Provider] - 1-2 days Activity/Diet/Wound Care/Special Instructions: Resume Metformin in 48 hours Discharge Disposition: HOME SELF-CARE
[2020-08-23] MEDS ORDERED: METOPROLOL TARTRATE 12.5 MG TAB PO SCH (09:00)
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
[2020-08-23 09:13] LABS: Basophils # (A) 0.1 k/uL (0-0.2); Basophils % (A) 1 %; Eosinophils # (A) 0.1 k/uL (0-0.7); Eosinophils % (A) 1 %; HCT 33.4 % (34.0-46.0); HGB 10.3 gm/dL (11.4-16.0); Hypochromasia Moderate; Lymphocytes # (A) 3.8 k/uL (1.0-4.8); Lymphocytes % (A) 44 %; MCH 25.7 pg (25.0-35.0); MCHC 30.9 g/dL (31.0-37.0); MCV 83.1 fL (80.0-100.0); Monocytes # (A) 0.4 k/uL (0-1.0); Monocytes % (A) 4 %; Neutrophils # (A) 4.1 k/uL (1.3-7.7); Neutrophils % (A) 48 %; Platelet Count 429 k/uL (150-450); RBC 4.02 m/uL (3.80-5.40); RDW 15.1 % (11.5-15.5); WBC 8.6 k/uL (3.8-10.6)
[2020-08-23 09:39] LABS: ALT 15 U/L (4-34); AST 23 U/L (14-36); African American GFR (CKD) >90 (>60 ml/min/1.73 sqM); Albumin 3.6 g/dL (3.5-5.0); Alkaline Phosphatase 134 U/L (38-126); Anion Gap 13 mmol/L; Blood Urea Nitrogen 9 mg/dL (7-17); Calcium 9.3 mg/dL (8.4-10.2); Carbon Dioxide 20 mmol/L (22-30); Chloride 102 mmol/L (98-107); Glucose 245 mg/dL (74-99); Non-African American GFR(CKD) >90 (>60 ml/min/1.73 sqM); Potassium 3.9 mmol/L (3.5-5.1); Sodium 135 mmol/L (137-145); Total Bilirubin 0.4 mg/dL (0.2-1.3); Total Protein 7.3 g/dL (6.3-8.2)
[2020-08-23] MEDS: GABAPENTIN 400 MG CAP PO SCH (10:10)
[2020-08-23] MEDS: ATORVASTATIN 40 MG TAB PO SCH (10:10)
[2020-08-23] MEDS: ASPIRIN 81 MG PO SCH (10:10)
[2020-08-23] MEDS: HYDROcodone/APAP 10-325MG 1 EACH TAB PO SCH (10:11)
[2020-08-23] MEDS: SODIUM CHLORIDE 0.9% 1,000 ML IV SCH (10:23)
[2020-08-23 11:37] LABS: Glucose,Whole Blood 234 mg/dL (75-99)
[2020-08-23 11:48] VITALS: BP 116/73; PULSE 60; RESP 18; TEMP 98.2
--- NOTE | 2020-10-02 14:56 | CDI ---
Documentation Clarification Form Date: 09/28/2020 10:56:00 AM From: Dayton Goetz Phone: Ruthy Gutierrez Admit Date: 08/21/2020 01:15:00 PM Patient Name: Azra Her Visit Number: [id number] Discharge Date: 08/23/2020 12:13:00 PM ATTENTION: The Clinical Documentation Specialists (CDI) and [facility] Coding Staff appreciate your assistance in clarifying documentation. Please respond to the clarification below the line at the bottom and electronically sign. The CDI & [facility] Coding staff will review the response and follow-up if needed. Please note: Queries are made part of the Legal Health Record. If you have any questions, please contact the author of this message via ITS. Dr. Fito Bhatt Your patient has the documented nausea and vomiting. Additional clarification regarding the etiology/cause of this symptom is requested. Discharge summary gives final diagnosis of nauseau and vomiting with no etiology. Patient history/risk factors: Hx of DKA Clinical Indicators: Radiology: CXR-no abnormal process Labs: Troponin 08/20-.060, glucose 266 on admission Vital Signs: ED: BP 165/90, Temp 99, pulse 100 Other Clinical Indicators: EKG-NSR Treatment: Heart catherization-no significant CAD Medication: metformin, glipizide Consults: cardiology-heart catherization Other Treatment: control of hyperglycemia Please provide additional clarification regarding the etiology/cause of the nauseau [ ] nauseau and vomiting due to NSTEMI [ x ] nauseau and vomiting due to hyperglycemia [ ] Other, please specify [ ] Unable to determine MTDD
--- NOTE | 2020-10-02 15:01 | CDI ---
Documentation Clarification Form Date: 09/28/2020 01:53:04 PM From: Dayton Goetz Phone: Ruthy Gutierrez [phone] Admit Date: 08/21/2020 01:15:00 PM Patient Name: Azra Her Visit Number: [id number] Discharge Date: 08/23/2020 12:13:00 PM ATTENTION: The Clinical Documentation Specialists (CDI) and [facility] Coding Staff appreciate your assistance in clarifying documentation. Please respond to the clarification below the line at the bottom and electronically sign. The CDI & [facility] Coding staff will review the response and follow-up if needed. Please note: Queries are made part of the Legal Health Record. If you have any questions, please contact the author of this message via ITS. Dr. Fito Bhatt Myocardial infarction (VA) is documented in the discharge summary. Additional clarification regarding the type of VA is requested. History/Risk Factors: DM with hx of DKA. Glucose 266 on admission. Clinical Indicators: B/P 165/90, pulse 100, Temp 99, CXR-no abnormal processes Troponin: 08/20-.060 EKG Results: NSR Treatment: Heart catherization-no significant CAD. Treated for hyperglycemia. Please clarify the type of VA, if known: [ ] STEMI (type 1) [ ] NSTEMI (type 1) [ ] Type II VA due to (please specify etiology) [x ] Unable to determine [ ] Other Condition, please specify MTDD
== END 2020-08-23 12:13 | disposition home or self-care (01) | DRG 637 ==
LOC: EC 17:22 → 3SCARD 21:40 → OBSVTOIN 08-21 13:15 → 3SCARD 08-21 20:08
PROVIDERS: ADMIT Internal Medicine; ATTEND Internal Medicine
PROC: B2111ZZ Fluoroscopy of Multiple Coronary Arteries using Low Osmolar Contrast (ICD-10-PCS; principal; 2020-08-22 12:00)
DX: E11.65 Type 2 diabetes mellitus with hyperglycemia (principal); I21.4 Non-ST elevation (NSTEMI) myocardial infarction; R19.7 Diarrhea, unspecified; Z86.711 Personal history of pulmonary embolism; R53.1 Weakness; Z79.01 Long term (current) use of anticoagulants; Z79.84 Long term (current) use of oral hypoglycemic drugs; Z79.899 Other long term (current) drug therapy; F32.9 Major depressive disorder, single episode, unspecified; Z20.822 Contact with and (suspected) exposure to COVID-19; F41.9 Anxiety disorder, unspecified; M54.30 Sciatica, unspecified side; Z82.49 Family history of ischemic heart disease and other diseases of the circulatory system; Z83.3 Family history of diabetes mellitus; Z86.718 Personal history of other venous thrombosis and embolism; Z91.19 Patient's noncompliance with other medical treatment and regimen; D64.9 Anemia, unspecified; J45.909 Unspecified asthma, uncomplicated; G89.29 Other chronic pain; Z79.82 Long term (current) use of aspirin; Z88.5 Allergy status to narcotic agent; E11.40 Type 2 diabetes mellitus with diabetic neuropathy, unspecified; Z82.3 Family history of stroke; I25.10 Atherosclerotic heart disease of native coronary artery without angina pectoris; F17.200 Nicotine dependence, unspecified, uncomplicated; Z71.6 Tobacco abuse counseling; I35.8 Other nonrheumatic aortic valve disorders; Z91.128 Patient's intentional underdosing of medication regimen for other reason; E78.00 Pure hypercholesterolemia, unspecified; I10 Essential (primary) hypertension; T45.516A Underdosing of anticoagulants, initial encounter; T38.3X6A Underdosing of insulin and oral hypoglycemic [antidiabetic] drugs, initial encounter
CPT/HCPCS: 36415; 71046; 80048; 80053; 81001; 82009; 83605; 83735; 84443; 84484; 85025; 85610; 87635; 93005; 93306; 93454; 94640; 96374; 99285

== ENCOUNTER → 2020-11-17 | Outpatient (CLI) | payer MEDICARE, OTHER | END | disposition home or self-care (01) | DX: M47.27 Other spondylosis with radiculopathy, lumbosacral region (principal); M43.17 Spondylolisthesis, lumbosacral region; M99.73 Connective tissue and disc stenosis of intervertebral foramina of lumbar region | CPT/HCPCS: 72148 ==